=== PATIENT | female | born 1950 | race Hispanic/Latino ===

== ENCOUNTER 2023-07-11 17:20 | Observation (INO) | payer OTHER ==
[~2023-07-11] VITALS: Ht 152.4 cm; Wt 91.6 kg
[~2023-07-11 17:20] MED LIST: DILT120T5 PO
[2023-07-11 17:59] LABS: BASOPHILS # (AUTO) 0.01 K/uL (0.00-0.20); BASOPHILS % (AUTO) 0.1 % (0.0-5.0); EOSINOPHILS # (AUTO) 0.01 K/uL (0.00-0.70); EOSINOPHILS % (AUTO) 0.1 % (0.0-8.0); HEMATOCRIT 34.1 % (36-48); IMMATURE GRANULOCYTE ABSOLUTE 0.05 K/uL (0-1); LYMPHOCYTES # (AUTO) 0.4 K/uL (1.0-4.8); MEAN CORPUSCULAR HGB CONC 31.1 g/dL (32.0-36.0); MEAN CORPUSCULAR VOLUME 86.8 fL (79-99); MONOCYTES # (AUTO) 0.3 K/uL (0.1-1.0); MONOCYTES % (AUTO) 3.6 % (3.0-13.0); NEUTROPHILS # (AUTO) 7.2 K/uL (1.8-7.7); NEUTROPHILS % (AUTO) 90.6 % (40.0-77.0); PLATELET COUNT (AUTO) 323 K/uL (130-400); RED BLOOD CELL COUNT(AUTO) 3.93 MIL/uL (4.00-5.50); RED CELL DISTRIBUTION WIDTH 15.6 % (11.0-15.5)
[2023-07-11 18:15] LABS: CREATININE 0.6 mg/dL (0.5-1.0); POTASSIUM 4.2 mmol/L (3.5-5.1)
[2023-07-11 18:17] LABS: INR <= 0.93 (0.85-1.15)
[2023-07-11] MEDS: DILTIAZEM 25MG INJ IVP ONE ×2 (18:17→18:21)
[2023-07-11] MEDS: DILTIAZEM 125 MG/25 ML INJ 125 MG in 0.9%NACL 100ML 100 ML IV PRN (18:21)
[2023-07-11] MEDS: DILTIAZEM 125 MG/25 ML INJ IV ONE (18:21)
[2023-07-11 18:24] LABS: ALBUMIN 3.1 g/dL (3.5-5.0); BILIRUBIN,TOTAL 0.4 mg/dL (0.2-1.0); MAGNESIUM 1.8 mg/dL (1.80-2.40); TOTAL PROTEIN, SERUM 7.2 g/dL (6.0-8.3)
[2023-07-11 18:36] LABS: APPEARANCE,URINE CLEAR (CLEAR); BILIRUBIN,URINE NEGATIVE (NEGATIVE); COLOR,URINE COLORLESS (YELLOW); GLUCOSE, URINE (UA) NEGATIVE (NEGATIVE); KETONES,URINE 5 mg/dL (NEGATIVE); LEUKOCYTE ESTERASE ,URINE 500 Leu/uL (NEGATIVE); NITRATE,URINE NEGATIVE (NEGATIVE); OCCULT BLOOD,URINE SMALL (NEGATIVE); PROTEIN,URINE NEGATIVE (NEGATIVE); UROBILINOGEN,URINE 0.2 mg/dL (0.2-1.0)
[2023-07-11 18:41] LABS: ADD UA MICROSCOPIC YES
[2023-07-11 18:43] LABS: BACTERIA,URINE RARE /HPF (None Seen); MUCUS,URINE RARE LPF (None Seen); SQUAMOUS EPITHELIAL CELL,UR FEW /HPF (0-2); UNCLASSIFIED CRYSTAL 1 /HPF (None Seen)
[2023-07-11] MEDS: ENOXAPARIN SODIUM 100 MG/1 ML SQ ONE (20:08)
[2023-07-11] MEDS ORDERED: ONDANSETRON 4MG INJ IVP PRN (20:30)
[2023-07-11] MEDS ORDERED: IPRATROPIUM 0.5 MG/2.5 ML INH IH PRN (20:30)
[2023-07-11] MEDS ORDERED: LACTULOSE 20 GM/30 ML UDCUP PO PRN (20:30)
[2023-07-11] MEDS ORDERED: TEMAZEPAM 15 MG CAPSULE PO PRN (20:30)
[2023-07-11] MEDS ORDERED: ALBUTEROL 0.083% 2.5 MG/3 ML INH IH PRN (20:30)
[2023-07-11] MEDS ORDERED: ACETAMINOPHEN 325 MG TAB PO PRN (20:30)
[2023-07-11] MEDS ORDERED: DOCUSATE SODIUM 100 MG CAP PO PRN (20:30)
[2023-07-11] MEDS ORDERED: ACETAMINOPHEN 650 MG SUPPOSITORY RC PRN (20:30)
[2023-07-11] MEDS ORDERED: HYDRALAZINE 20MG/ML VIAL IV PRN (20:30)
[2023-07-11] MEDS: INSULIN HUMULIN R 100 UNIT/ML 3ML SQ SCH (21:00)
[2023-07-11] MEDS: METOPROLOL TARTRATE 25 MG TAB PO SCH (21:16)
[2023-07-12 04:05] VITALS: O2SAT 97
[2023-07-12 04:47] VITALS: BP 101/45; PULSE 77; RESP 16
[2023-07-12] MEDS ORDERED: NITROGLYCERIN 0.4 MG SL TAB SL PRN (06:00)
[2023-07-12] MEDS ORDERED: POTASSIUM CHLORIDE 10% ELIXIR 20 MEQ/15 ML UDCUP PO PRN (06:00)
[2023-07-12] MEDS ORDERED: POTASSIUM CHLORIDE 20MEQ/100ML 100 ML IV PRN (06:00)
[2023-07-12 06:01] LABS: EOSINOPHILS # (AUTO) 0.01 K/uL (0.00-0.70); EOSINOPHILS % (AUTO) 0.3 % (0.0-8.0); HEMATOCRIT 30.9 % (36-48); LYMPHOCYTES # (AUTO) 0.5 K/uL (1.0-4.8); LYMPHOCYTES % (AUTO) 16.5 % (21.0-51.0); MEAN CORPUSCULAR HEMOGLOBIN 27.1 pg (27.0-33.0); MEAN CORPUSCULAR HGB CONC 31.1 g/dL (32.0-36.0); MEAN CORPUSCULAR VOLUME 87.3 fL (79-99); MONOCYTES # (AUTO) 0.3 K/uL (0.1-1.0); MONOCYTES % (AUTO) 10.2 % (3.0-13.0); NEUTROPHILS # (AUTO) 2.4 K/uL (1.8-7.7); PLATELET COUNT (AUTO) 256 K/uL (130-400); RED BLOOD CELL COUNT(AUTO) 3.54 MIL/uL (4.00-5.50); RED CELL DISTRIBUTION WIDTH 15.3 % (11.0-15.5); WHITE BLOOD COUNT (AUTO) 3.2 K/uL (4.8-10.8)
[2023-07-12] MEDS: DOXYCYCLINE 100MG+NS 250ML 250 ML IV SCH (06:06)
[2023-07-12 06:07] LABS: CREATININE 0.6 mg/dL (0.5-1.0); MAGNESIUM 1.6 mg/dL (1.80-2.40); PHOSPHORUS 3.4 mg/dL (2.5-4.9); POTASSIUM 3.2 mmol/L (3.5-5.1)
[2023-07-12] MEDS: LACTATED RINGERS 1000ML 250 ML IV SCH (07:21)
[2023-07-12] MEDS: KCL 20 MEQ ERTAB PO PRN (07:21)
[2023-07-12] MEDS: PANTOPRAZOLE 40 MG/VIAL IVP SCH (08:40)
[2023-07-12] MEDS: ENOXAPARIN SODIUM 40 MG/0.4 ML SYRINGE SQ SCH (08:42)
[2023-07-12 08:48] VITALS: BP 112/74; PULSE 90; RESP 18
[2023-07-12] MEDS: MAGNESIUM 2GM PREMIX 50ML 50 ML IV PRN (08:53)
[2023-07-12 08:55] VITALS: O2SAT 97
[2023-07-12] MEDS ORDERED: ASPIRIN 81MG CHEW TAB PO SCH (09:00)
[2023-07-12 12:30] VITALS: BP 128/58; PULSE 76; RESP 18
[2023-07-12 16:21] VITALS: BP 125/58; PULSE 86; RESP 18
[2023-07-12] MEDS ORDERED: METO25 PO (16:44)
[2023-07-12] MEDS ORDERED: ATOR40TA69 PO (16:44)
[2023-07-12] MEDS ORDERED: LEVO-70 PO (16:46)
[2023-07-12] MEDS ORDERED: ATORVASTATIN 40 MG TABLET PO SCH (21:00)
== END 2023-07-12 18:25 | disposition home or self-care (01) ==
LOC: EDH 17:20 → EDHIP 19:24 → 2AH 07-12 01:32
PROVIDERS: ADMIT Internal Medicine Critical Care Medicine; ATTEND Internal Medicine Critical Care Medicine
DX: I48.20 Chronic atrial fibrillation, unspecified (principal); N30.00 Acute cystitis without hematuria; E87.1 Hypo-osmolality and hyponatremia; E87.8 Other disorders of electrolyte and fluid balance, not elsewhere classified; E83.42 Hypomagnesemia; E16.2 Hypoglycemia, unspecified; E86.0 Dehydration; D64.9 Anemia, unspecified; E78.00 Pure hypercholesterolemia, unspecified; I73.9 Peripheral vascular disease, unspecified; I10 Essential (primary) hypertension; I25.10 Atherosclerotic heart disease of native coronary artery without angina pectoris; Z88.0 Allergy status to penicillin; Z79.899 Other long term (current) drug therapy
CPT/HCPCS: 96372 ×2; 96376; 96361; 96365; 96366 ×2; 99285; 83735 ×2; 84484 ×2; 80053; 85025 ×2; 85610; 87088; 81001; 36415 ×2; 71045; 93005 ×2; 96375; 96367; 84100; 80048; 83880; 82948 ×2; 93306; G0378 ×20; J3490 ×4; J1650 ×2; J3475; C9113

== ENCOUNTER 2025-01-10 09:18 | Inpatient (IN) | payer OTHER ==
[~2025-01-10] VITALS: Ht 152.4 cm; Wt 89.2 kg
[2025-01-10] VITALS (8 sets, daily range): BP systolic 100–132; BP diastolic 45–90; PULSE 94–108; RESP 16–20; TEMP 98–98.8; O2SAT 97–98
[~2025-01-10 09:18] MED LIST changes: +ATOR40TA69 PO; -DILT120T5 PO; +LEVO-70 PO; +METO25 PO
--- NOTE | 2025-01-10 09:53 | EKG ---
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
[2025-01-10 09:55] LABS: IMMATURE GRANULOCYTE ABSOLUTE 0.06 K/uL (0-1); NUCLEATED RED BLOOD CELLS 0.2 % (0.0-0.19); PLATELET COUNT (AUTO) 335 K/uL (130-400); RED BLOOD CELL COUNT(AUTO) 3.62 MIL/uL (4.00-5.50); RED CELL DISTRIBUTION WIDTH 14.5 % (11.0-15.5); WHITE BLOOD COUNT (AUTO) 10.0 K/uL (4.8-10.8)
[2025-01-10 10:13] LABS: ASPARTATE AMINOTRANSFERASE 13.0 U/L (10-37); CREATINE KINASE, TOTAL 24.0 U/L (21-232); CREATININE 0.6 mg/dL (0.5-1.0); GLOMERULAR FILTR. RATE CALC 93.0 mL/min (>90); GLUCOSE,RANDOM 117.0 mg/dL (70-105); SODIUM SERUM 136.0 mmol/L (136-145); TOTAL PROTEIN, SERUM 7.4 g/dL (6.0-8.3); UREA NITROGEN, BLOOD 13.0 mg/dL (7-18)
[2025-01-10 10:24] LABS: COVID19 (SARS ANTIGEN RAPID) PRESUMPTIVE NEGATIVE (NEGATIVE); INFLUENZA TYPE A Negative For Type A (NEGATIVE); INFLUENZA TYPE B Negative For Type B (NEGATIVE)
--- NOTE | 2025-01-10 11:28 | HMCIMG ---
CHEST 1VW REASON: fever COMPARISON: Study from 07/11/2023 is available. FINDINGS: Single view of the chest was obtained. Lungs are clear. There is cardiomegaly with left ventricular contour.. There is no pulmonary vascular congestion. Mediastinum and bony thorax appear unremarkable. IMPRESSION: 1. Cardiomegaly with left ventricular contour. 2. No evidence of airspace consolidation or pulmonary venous congestion..
[2025-01-10] MEDS ORDERED: MAGNESIUM 2GM PREMIX 50ML 50 ML IV PRN (12:00)
--- NOTE | 2025-01-10 12:14 | HP ---
[facility] Date of Service: Jan 10, 2025 Time of Service: 12:13 HISTORY OF PRESENT ILLNESS: 74-year-old female with past medical history of atrial fibrillation not on anticoagulation who presented to the hospital secondary to cough, congestion for the past three days. The patient states around three days ago she noted that she was having increased shortness of breath which was present at rest and with exertion. She also noted fevers and felt like she was down with the ' cold'. She has cough but the cough is nonproductive. Denies any chest pain, abdominal pain, nausea, vomiting, denied any changes in her bowel movement. Denied any dysuria, changes in her urinary frequency. Denied any lower extremity swelling. She denies any history of blood clots and states she has been active at home. She sees Dr. Penny who is her primary business account executive. She is currently not taking any anticoagulation at home but is maintained on metoprolol b.i.d.. She did not take her dose in the morning today. Labs in the ER were notable for white count of 10.0, hemoglobin was 10.1, platelet count was 335 K, sodium was 136, potassium was 3.7, creatinine was 0.6, BNP was 391, troponin was seven, albumin was 3.3 Chest x-ray did not show any acute infiltrates Temperature on presentation was 100.0, heart rate was 107, respiratory rate was 28, blood pressure was 147/65 the patient was placed on2 L nasal cannula saturating around 98%. In the ER patient received Lasix 80 mg, Rocephin, Solu-Medrol REVIEW OF SYSTEMS CONSTITUTIONAL: Denies fevers, chills, or night sweats. No unintentional weight loss reported. NEUROLOGICAL: Denies headache, amaurosis fugax, motor weakness, sensory deficit, vertigo/spinning sensation, gait abnormalities, or tremors. ENT: No hearing loss, otalgia, otorrhea, rhinitis, rhinorrhea, hoarseness, or sore throat. CARDIOVASCULAR: Denied any chest pain. Positive for orthopnea. Denied any PND PULMONARY: Positive for shortness of breath, cough. Denied any sputum production GASTROINTESTINAL: Denies any type of dysphagia to either liquids or solids. Denies nausea, vomiting, pyrosis, early satiety, abdominal pain, diarrhea, constipation, or changes in stool consistency or caliber. Denies coffee-ground emesis, hematemesis, hematochezia, or melanotic stools. GENITOURINARY: Denies frequency, urgency, nocturia, hematuria or incontinence (Storage/Irritative symptoms.) Low urinary stream, straining to void, urinary intermittency or hesitancy, splitting of the voiding stream, terminal dribbling. ENDOCRINOLOGIC: Denies polyuria, polydipsia, polyphagia or heat/cold intolerances. HEMATOLOGIC: Denies thrombophilia/previous clots, or coagulopathy/bleeding disorders. ONCOLOGIC: Denies personal history of malignancy. DERMATOLOGIC: Denies rashes or pruritus. PSYCHIATRIC: Denies any suicidal or homicidal ideation. Denies hallucinations. PAST MEDICAL HISTORY: Atrial fibrillation PAST SURGICAL HISTORY: If he had any previous surgical history PAST SOCIAL HISTORY: Denied any smoking, alcohol, drug abuse FAMILY HISTORY: [ ] Denied any pertinent family history Coded Allergies: aspirin (Unverified Allergy, Intermediate, SHORTNESS OF BREATH, 07/11/23) naproxen (Unverified Allergy, Intermediate, SHORTNESS OF BREATH, 07/11/23) nitrofurantoin (Unverified Allergy, Intermediate, tingling in lips, nausea , 03/11/17) Penicillins (Unverified Allergy, Unknown, 07/11/23) PHYSICAL EXAM GENERAL APPEARANCE: The patient is awake, alert, and oriented, in no acute cardiopulmonary distress. Patient is Obese NEUROLOGICAL: Cranial nerves II-XII grossly intact. Motor is 5/5 in bilateral upper and lower extremities proximal to distal. No sensory deficits. HEENT: Face is symmetric. Pupils are equal and reactive. Extraocular movements are intact. NECK: Supple. No JVD. No thyromegaly. No submental, submandibular, pre-/postauricular, occipital or supraclavicular lymphadenopathy. CHEST: Normal chest expansion. No Telemetry. LUNGS: She has mild expiratory wheezing present CARDIOVASCULAR: Irregularly irregular. S1 and S2 normal. No appreciable rubs, murmurs or gallops. ABDOMEN: Soft, nontender, and nondistended. There is no rebound, voluntary guarding, or rigidity. : Deferred. No Pratt. EXTREMITIES: Non-edematous and not cyanotic. No clubbing. Good capillary refill. SKIN: No skin breakdown. Vital Sign (Last 24 Hours) 01/10/25 10:58 Temp 100.0 Pulse 112 Resp 28 B/P (MAP) 160/82 Pulse Ox 98 O2 Delivery Nasal Cannula* O2 Flow Rate 2 FiO2 28 LABS: Laboratory: Test 01/10/25 09:39 01/10/25 09:34 Range/Units White Blood Count 10.0 4.8-10.8 K/uL Red Blood Count 3.62 L 4.00-5.50 MIL/uL Hemoglobin 10.1 L 12.0-16.0 g/dL Hematocrit 31.6 L 36-48 % Mean Corpuscular Volume 87.3 79-99 fL Mean Corpuscular Hemoglobin 27.9 27.0-33.0 pg Mean Corpuscular Hemoglobin Concent 32.0 32.0-36.0 g/dL Red Cell Distribution Width 14.5 11.0-15.5 % Platelet Count 335 130-400 K/uL Mean Platelet Volume 9.0 7.5-10.5 fL Immature Granulocyte % (Auto) 0.6 0-1 % Neutrophils (%) (Auto) 87.2 H 40.0-77.0 % Lymphocytes (%) (Auto) 6.4 L 21.0-51.0 % Monocytes (%) (Auto) 4.5 3.0-13.0 % Eosinophils (%) (Auto) 1.1 0.0-8.0 % Basophils (%) (Auto) 0.2 0.0-5.0 % Neutrophils # (Auto) 8.7 H 1.8-7.7 K/uL Lymphocytes # (Auto) 0.6 L 1.0-4.8 K/uL Monocytes # (Auto) 0.5 0.1-1.0 K/uL Eosinophils # (Auto) 0.11 0.00-0.70 K/uL Basophils # (Auto) 0.02 0.00-0.20 K/uL Absolute Immature Granulocyte (auto 0.06 0-1 K/uL Nucleated Red Blood Cells 0.2 H 0.0-0.19 % White Cell Morphology Comment See comments Sodium Level 136 136-145 mmol/L Potassium Level 3.7 3.5-5.1 mmol/L Chloride Level 101 101-111 mmol/L Carbon Dioxide Level 29 21-32 mmol/L Blood Urea Nitrogen 13 7-18 mg/dL Creatinine 0.6 0.5-1.0 mg/dL Glomerular Filtration Rate Calc 93 >90 mL/min Random Glucose 117 H 70-105 mg/dL Lactic Acid Level 1.3 0.8-2.5 mmol/L Total Calcium 8.6 8.5-10.1 mg/dL Total Bilirubin 0.4 0.2-1.0 mg/dL Direct Bilirubin 0.1 0.0-0.3 mg/dL Aspartate Amino Transf (AST/SGOT) 13 10-37 U/L Alanine Aminotransferase (ALT/SGPT) 17 12-78 U/L Alkaline Phosphatase 81 50-136 U/L Total Creatine Kinase 24 # 21-232 U/L Troponin I High Sensitivity 7 4-50 ng/L B-Type Natriuretic Peptide 391 H 0-100 pg/mL Total Protein 7.4 6.0-8.3 g/dL Albumin 3.3 L 3.5-5.0 g/dL Influenza Type A Antigen Negative For Type A NEGATIVE Influenza Type B Antigen Negative For Type B NEGATIVE SARS-CoV-2 Antigen (Rapid) PRESUMPTIVE NEGATIVE NEGATIVE Current Medications Medications (Trade) Dose Ordered Sig/Guerline Route PRN Reason Start Time Stop Time Status Last Admin Dose Admin Acetaminophen (TYLenol 500MG TAB) 500 mg Q6H PRN PO MILD PAIN (1-3) 01/10/25 12:00 02/09/25 11:59 Albuterol (DUOneb) 1 udvial ONCE STAT IH 01/10/25 09:25 01/10/25 09:39 DC Ceftriaxone Sodium (Rocephin 2gm Inj) 2 gm ONCE STAT IVPB 01/10/25 09:25 01/10/25 09:31 DC 01/10/25 10:06 2 GM Famotidine (Pepcid 20mg Vial) 20 mg BID IV 01/10/25 21:00 02/09/25 20:59 Furosemide (LASix 40MG VIAL) 40 mg Q12H IV 01/10/25 18:00 02/09/25 17:59 Furosemide (LASix 40MG VIAL) 80 mg ONCE STAT IV 01/10/25 10:08 01/10/25 10:10 DC 01/10/25 10:54 80 MG Levofloxacin/ Dextrose 100 ml @ 100 mls/hr Q24H IV 01/10/25 13:00 01/20/25 12:59 Magnesium Sulfate 50 ml @ 0 mls/hr PROTOCOL PRN IV hypomagnesemia 10/18/25 12:00 02/09/25 11:59 Methylprednisolone Sodium Succinate (Solu-medROL 40MG) 40 mg Q12H IVP 01/10/25 18:00 02/09/25 17:59 Methylprednisolone Sodium Succinate (Solu-medROL 125MG) 125 mg ONCE STAT IVP 01/10/25 09:25 01/10/25 09:28 DC Metoprolol Tartrate (loprESSOR) 5 mg ONCE STAT IV 01/10/25 09:39 01/10/25 09:42 DC 01/10/25 10:07 5 MG Metoprolol Tartrate (loprESSOR) 5 mg ONCE STAT IV 01/10/25 10:48 01/10/25 10:50 DC 01/10/25 10:54 5 MG Potassium Chloride 100 ml @ 100 mls/hr AD PRN IV POTASSIUM PROTOCOL 01/10/25 12:00 02/09/25 11:59 Potassium Chloride (K-Dur/Klor-Con 20meq) 20 meq AD PRN PO POTASSIUM PROTOCOL 01/10/25 12:00 02/09/25 11:59 Potassium Chloride (KCl 10% Elixir 20meq/15ml) 20 meq AD PRN PO POTASSIUM PROTOCOL 01/10/25 12:00 02/09/25 11:59 DIAGNOSTICS / RADIOLOGY: [ ] ASSESSMENT: Suspected sepsis POA Paroxysmal atrial fibrillation with RVR POA Acute hypoxic respiratory failure POA Suspected community-acquired pneumonia versus viral URI Acute CHF exacerbation with diastolic dysfunction Obesity BMI 39.8 Normocytic anemia PLAN: - patient to be admitted to PCCU -in reference to suspected sepsis, acute hypoxic respiratory.. We will obtain a sputum culture. We will follow up on blood cultures. Patient will be started on Levaquin. We will request consultation with pulmonology. Patient will be started on Solu-Medrol Q12 hours -reference to CHF exacerbation. Monitor urine output. Daily weights. Obtain echocardiogram. The patient will be started on metoprolol 25 mg b.i.d. we will request consultation with Cardiology. -check TSH, A1c, procalcitonin -CT chest -further orders per hospitalization course. Advanced Care Planning Which of the following were discussed: Hospice care: Yes __ No _x_ Therapeutic options: Yes __ No __ Advance directives: Yes __ No __ Other discussions: Pt is full code Discussed with who?: patient (Patient, family or surrogates) Voluntary nature of this service was explained to the patient? Yes _x_ No __ Amount of time spent: 25 minutes VIRIDIANA Constantino MD, MD Jan 10, 2025 12:14
[2025-01-10 12:41] LABS: INR 1.04 (0.85-1.15)
[2025-01-10] MEDS ORDERED: METO25TA6 PO (14:11)
[2025-01-10] MEDS ORDERED: FERR-72 PO (14:11)
[2025-01-10] MEDS: SODIUM CHLORIDE 3% FOR INHALATION 4 ML/AMP VIAL.NEB IH ONE ×2 (14:25→19:16)
--- NOTE | 2025-01-10 14:35 | NUR ---
CRITICAL CARE CONSULT COMPLETE. SPOKE TO ESTEPHANIE VALDOVINOS AND STATES HE IS AWARE AND WILL COME VISIT PT AND PLACE ORDERS.
[2025-01-10 15:29] LABS: CREATININE 0.7 mg/dL (0.5-1.0); GLOMERULAR FILTR. RATE CALC 90.0 mL/min (>90); GLUCOSE,RANDOM 121.0 mg/dL (70-105); SODIUM SERUM 140.0 mmol/L (136-145); UREA NITROGEN, BLOOD 13.0 mg/dL (7-18)
--- NOTE | 2025-01-10 15:45 | ERN ---
ED Note History of Present Illness Stated Complaint: AHRF, A FIB RVR, SUSPCTED PNEUMONIA Chief Complaint: Shortness of Breath Time Seen by MD: 09:23 Dictation: 74-year-old female presenting to the emergency department with shortness of breath generalized weakness, patient has a history of atrial fibrillation and feels palpitations symptoms have been going on for few days but got worse this morning. Allergies: Coded Allergies: aspirin (Unverified Allergy, Intermediate, SHORTNESS OF BREATH, 07/11/23) naproxen (Unverified Allergy, Intermediate, SHORTNESS OF BREATH, 07/11/23) nitrofurantoin (Unverified Allergy, Intermediate, tingling in lips, nausea , 03/11/17) Penicillins (Unverified Allergy, Unknown, 07/11/23) Home Meds Reported Medications Ferrous Sulfate (Ferrous Sulfate) 325 Mg (65 Mg Iron) Tablet, 1 TAB PO DAILY for 30 Days, #30 TAB 0 Refills 01/10/25 Metoprolol Tartrate (Metoprolol Tartrate) 25 Mg Tablet, 1 TAB PO DAILY for 30 Days, #60 TAB 0 Refills 01/10/25 Discontinued Scripts Levofloxacin (Levofloxacin) 500 Mg Tablet, 500 MG PO DAILY, #7 TAB Prov:LIZBET BAUTISTA AGACNP 07/12/23 Metoprolol Tartrate (Lopressor) 25 Mg Tab, 25 MG PO BID, #60 TAB Prov:LIZBET BAUTISTA AGACNP 07/12/23 Atorvastatin Calcium (LIPITOR) 40 Mg Tablet, 40 MG PO HS, #30 TAB Prov:LIZBET BAUTISTA AGACNP 07/12/23 Past Medical History Past Medical History: A-Fib, Anemia, CAD, Diverticulosis, High Cholesterol, Hypertension, Renal Disese Additional Past Medical Hx: PVD, Surgical History: Other Social History: Negative Review of System Dictation Constitutional: Negative for fever,chills, and weight loss Eyes: Negative for injury, pain,redness, and discharge ENT: Negative for injury,pain or swelling Cardiovascular: Per HPI Respiratory: Per HPI Abdomen/GI: Negative for abdominal pain, nausea, vomiting, diarrhea, and constipation Back: Negative for injury and pain : Negative for injury, bleeding and discharge MS/Extremity: Negative for injury and deformity Skin: Negative for rash, and discoloration Neuro: Negative for headache, weakness, numbness, tingling, and seizure Psych: Negative for suicide ideation, homicidal ideation, and hallucinations Initial Vital Sign VS Vital Signs Date Time Temp Pulse Resp B/P (MAP) Pulse Ox O2 Delivery O2 Flow Rate FiO2 01/10/25 09:20 100.0 107 28 147/65 94 Room Air 01/10/25 09:41 0 21 Physical Exam Dictation General: awake, alert, uncomfortable Head/Face: Normocephalic, atraumatic Eyes: PERRL, EOMI, vision at baseline ENT: oral cavity clear, TMs clear, no signs of infection Neck: Trachea midline, supple, no nuchal rigidity Cardiovascular: Tachycardia irregularly irregular, normal S1/S2, No MRGs, no JVD Respiratory: Tachypnea with diminished bilateral breath sounds crackles at the bases Abdomen: Soft, non-tender, non-distended, normal bowel sounds, no guarding or rebound. Skin: Warm, dry, normal turgor, no rash MS/Extremity: Pulses equal, no cyanosis, neurovascular intact, FROM Neuro: COAx4, GCS 15, strength 5/5, CN 2-12 intact, normal cerebellar exam, normal gait, Psych: Normal behavior, mood, and affect normal Results (Laboratory/Radiology) Laboratory/Radiology Laboratory Tests Test 01/10/25 09:34 01/10/25 09:39 01/10/25 15:03 Influenza Type A Antigen Negative For Type A Influenza Type B Antigen Negative For Type B SARS-CoV-2 Antigen (Rapid) PRESUMPTIVE NEGATIVE White Blood Count 10.0 K/uL (4.8-10.8) Red Blood Count 3.62 MIL/uL (4.00-5.50) L Hemoglobin 10.1 g/dL (12.0-16.0) L Hematocrit 31.6 % (36-48) L Mean Corpuscular Volume 87.3 fL (79-99) Mean Corpuscular Hemoglobin 27.9 pg (27.0-33.0) Mean Corpuscular Hemoglobin Concent 32.0 g/dL (32.0-36.0) Red Cell Distribution Width 14.5 % (11.0-15.5) Platelet Count 335 K/uL (130-400) Mean Platelet Volume 9.0 fL (7.5-10.5) Immature Granulocyte % (Auto) 0.6 % (0-1) Neutrophils (%) (Auto) 87.2 % (40.0-77.0) H Lymphocytes (%) (Auto) 6.4 % (21.0-51.0) L Monocytes (%) (Auto) 4.5 % (3.0-13.0) Eosinophils (%) (Auto) 1.1 % (0.0-8.0) Basophils (%) (Auto) 0.2 % (0.0-5.0) Neutrophils # (Auto) 8.7 K/uL (1.8-7.7) H Lymphocytes # (Auto) 0.6 K/uL (1.0-4.8) L Monocytes # (Auto) 0.5 K/uL (0.1-1.0) Eosinophils # (Auto) 0.11 K/uL (0.00-0.70) Basophils # (Auto) 0.02 K/uL (0.00-0.20) Absolute Immature Granulocyte (auto 0.06 K/uL (0-1) Nucleated Red Blood Cells 0.2 % (0.0-0.19) H White Cell Morphology Comment See comments Prothrombin Time 11.0 SEC (9.6-11.6) Prothromb Time International Ratio 1.04 (0.85-1.15) Activated Partial Thromboplast Time 30.8 SEC (26.3-35.5) Sodium Level 136 mmol/L (136-145) 140 mmol/L (136-145) Potassium Level 3.7 mmol/L (3.5-5.1) 3.4 mmol/L (3.5-5.1) L Chloride Level 101 mmol/L (101-111) 97 mmol/L (101-111) L Carbon Dioxide Level 29 mmol/L (21-32) 32 mmol/L (21-32) Blood Urea Nitrogen 13 mg/dL (7-18) 13 mg/dL (7-18) Creatinine 0.6 mg/dL (0.5-1.0) 0.7 mg/dL (0.5-1.0) Glomerular Filtration Rate Calc 93 mL/min (>90) 90 mL/min (>90) Random Glucose 117 mg/dL (70-105) H 121 mg/dL (70-105) H Hemoglobin A1c 5.0 % (4.0-6.0) Estimated Average Glucose (eAG) 97 mg/dL (70-126) Lactic Acid Level 1.3 mmol/L (0.8-2.5) Total Calcium 8.6 mg/dL (8.5-10.1) 8.6 mg/dL (8.5-10.1) Total Bilirubin 0.4 mg/dL (0.2-1.0) Direct Bilirubin 0.1 mg/dL (0.0-0.3) Aspartate Amino Transf (AST/SGOT) 13 U/L (10-37) Alanine Aminotransferase (ALT/SGPT) 17 U/L (12-78) Alkaline Phosphatase 81 U/L (50-136) Total Creatine Kinase 24 U/L (21-232) # Troponin I High Sensitivity 7 ng/L (4-50) C-Reactive Protein, Quantitative 83.00 mg/L (0.5-3.0) H B-Type Natriuretic Peptide 391 pg/mL (0-100) H Total Protein 7.4 g/dL (6.0-8.3) Albumin 3.3 g/dL (3.5-5.0) L Procalcitonin < 0.05 ng/mL (0.05-0.5) L Thyroid Stimulating Hormone (TSH) 0.95 uIU/mL (0.36-3.74) # Magnesium Level 1.80 mg/dL (1.80-2.40) Labs Reviewed?: Yes EKG Comment: Atrial fibrillation, heart rate 111, rapid ventricular response no STEMI ED Course ED Course Orders Procedure Category Date Status Time B-Type Natriuretic LAB 01/10/25 Complete Peptide 09:24 Covid19 (Sars Antigen LAB 01/10/25 Complete Rapid) 09:24 Influenza Type A & B, LAB 01/10/25 Complete Rapid 09:24 12 Lead Ekg Tracing- EKG 01/10/25 Complete Technical 09:24 Basic Metabolic Panel LAB 01/10/25 Complete 09:24 Blood Cult STACIE 01/10/25 In Process 09:24 Cbc With Differential LAB 01/10/25 Complete 09:24 Hepatic Function Panel LAB 01/10/25 Complete 09:24 Creatine Kinase, Total LAB 01/10/25 Complete 09:24 Lactic Acid LAB 01/10/25 Complete 09:24 Troponin I High LAB 01/10/25 Complete Sensitivity 09:24 Chest 1vw RAD 01/10/25 Resulted 09:24 Methylprednisolone PHA 01/10/25 Complete Succ 125mg (Solu-Medr 09:25 Ipratropium/Albuterol PHA 01/10/25 Complete Neb (Duoneb) 09:25 Ceftriaxone 2gm Vial PHA 01/10/25 Complete (Rocephin 2gm Inj) 09:25 Metoprolol Tartrate PHA 01/10/25 Complete (Lopressor) 09:39 Furosemide 40mg Vial PHA 01/10/25 Complete (Lasix 40mg Vial) 10:08 Metoprolol Tartrate PHA 01/10/25 Complete (Lopressor) 10:48 Vital Signs(Adult CPOE 01/10/25 Transmitted Hospitalist) 11:51 Nurse To Enter Home CPOE 01/10/25 Transmitted Medication 11:51 Admit Orders ADM 01/10/25 Transmitted 11:51 Telemetry Monitoring CPOE 01/10/25 Transmitted 11:51 Clear Liquid DIET 01/10/25 Transmitted Lunch Famotidine 20mg Vial PHA 01/10/25 Complete (Pepcid 20mg Vial) 21:00 Cardiology Consult CONPHYSVC 01/10/25 Transmitted 11:51 Pulmonology Consult CONPHYSVC 01/10/25 Transmitted 11:51 Procalcitonin LAB 01/10/25 Complete 11:51 Crp Quantitative LAB 01/10/25 Complete 11:51 Thyroid Stimulating LAB 01/10/25 Complete Hormone 11:51 Hemoglobin A1c LAB 01/10/25 Complete 11:51 Respiratory Cult STACIE 01/10/25 In Process W/Gram Stain 11:51 Levofloxacin 500 PHA 01/10/25 In Process Mg/D5w 100 Ml 13:00 Acetaminophen 500mg PHA 01/10/25 In Process Tab (Tylenol 500mg T 12:00 Ct Chest W/O Contrast CT 01/10/25 Taken 11:51 *Nursing CPOE 01/10/25 Transmitted Communication: 11:51 Daily Weights CPOE 01/10/25 Transmitted 11:51 Intake And Output CPOE 01/10/25 Transmitted Every 1 Hour 11:51 Metoprolol Tartrate PHA 01/10/25 Complete 25 Mg Tab (Lopressor 12:00 Furosemide 40mg Vial PHA 01/10/25 In Process (Lasix 40mg Vial) 18:00 Methylprednisolone PHA 01/10/25 In Process Succ 40mg (Solu-Medro 18:00 Basic Metabolic Panel LAB 01/10/25 Complete 15:00 Magnesium LAB 01/10/25 Complete 15:00 Initiate Po KYUNG 01/10/25 In Process Hypokalemia Protoc 11:59 Potassium Chloride PHA 01/10/25 In Process 20meq/100ml (Potassiu 12:00 Potassium Chl 10% PHA 01/10/25 In Process Elixir 20meq (Kcl 10% 12:00 Potassium Chloride PHA 01/10/25 In Process 20meq Er (K-Dur/Klor- 12:00 Notify Physician If CPOE 01/10/25 Transmitted There Is 11:59 Notify Md On The Next CPOE 01/10/25 Transmitted 11:59 Notify Md On The CPOE 01/10/25 Transmitted Next(Cont.) 11:59 Magnesium 2gm Premix PHA 01/10/25 In Process 50ml (Magnesium 2gm 12:00 Infectious Disease CONPHYSVC 01/10/25 Transmitted Consult 12:09 Pt And Ptt LAB 01/10/25 Complete 12:10 Mycoplasma Ab Igm LAB 01/11/25 Verified 04:00 Legionella Pneumo Ag STACIE 01/10/25 Logged Urine 12:10 Ipratropium 0.5 PHA 01/10/25 In Process Mg/2.5 Ml Inh 12:30 Pantoprazole 40mg Inj PHA 01/10/25 In Process (Protonix 40mg Inj 13:00 Sodium Chloride 3% PHA 01/10/25 Complete Inh (Sodium Chloride 14:02 Current Medications Medications (Trade) Dose Ordered Sig/Guerline Route PRN Reason Start Time Stop Time Status Last Admin Dose Admin Albuterol (DUOneb) 1 udvial ONCE STAT IH 01/10/25 09:25 01/10/25 09:39 DC Ceftriaxone Sodium (Rocephin 2gm Inj) 2 gm ONCE STAT IVPB 01/10/25 09:25 01/10/25 09:31 DC 01/10/25 10:06 Furosemide (LASix 40MG VIAL) 80 mg ONCE STAT IV 01/10/25 10:08 01/10/25 10:10 DC 01/10/25 10:54 Methylprednisolone Sodium Succinate (Solu-medROL 125MG) 125 mg ONCE STAT IVP 01/10/25 09:25 01/10/25 09:28 DC Metoprolol Tartrate (loprESSOR) 5 mg ONCE STAT IV 10/18/25 09:39 01/10/25 09:42 DC 01/10/25 10:07 Metoprolol Tartrate (loprESSOR) 5 mg ONCE STAT IV 01/10/25 10:48 01/10/25 10:50 DC 01/10/25 10:54 Vital Signs Date Time Temp Pulse Resp B/P (MAP) Pulse Ox O2 Delivery O2 Flow Rate FiO2 01/10/25 14:45 99.0 95 18 117/76 95 Nasal Cannula* 2 28 01/10/25 14:28 94 20 N/Cannula Low lpm 2.0 28 01/10/25 13:48 99.0 98 30 100/56 94 Nasal Cannula* 2 28 01/10/25 13:42 99.0 98 30 85/45 100 Nasal Cannula* 2 28 01/10/25 12:15 99.0 105 26 123/73 96 Nasal Cannula* 2 28 01/10/25 10:58 100.0 112 28 160/82 98 Nasal Cannula* 2 28 01/10/25 10:54 121 160/82 01/10/25 10:07 121 149/83 01/10/25 09:41 132 26 139/67 97 Room Air* 0 21 01/10/25 09:20 100.0 107 28 147/65 94 Room Air Medical Decision Making MDM MDM: Differential diagnosis: Rationale: Tests considered and ordered secondary to shared decision making include: labs, ECG and radiology Previous outside records reviewed: Old ER visits. Risk of complication and/or morbidity or mortality of patient management: None Medications-Per medication reconciliation Need for hospitalization: Patient does meet criteria for hospitalization. Need for emergency major/minor surgery: No There are no social concerns with this patient. Prescription drug management Prescriptions will include symptomatic care Patient's prior external medical records from other ER visits were reviewed by me as indicated. Prior testing and results from previous visits were reviewed. Prior tests were taken into account with medical decision making and resource utilization, independent historian/historians were used to obtain complete medical history. I independently interpreted the test that were performed, results were reviewed by me and considered findings on radiology if ordered. Medical management and examination interpretation discussions were had by me with other qualified healthcare professionals as indicated for the patient's care. 74-year-old female AFib RVR with fluid overload rate controlled and diuresed admitting for further care and evaluation Critical Care Note Comment(s) Total critical care time was 33 minutes. Excluding time for procedures. Management of critically ill patient with concern for acute decompensation. Management included interpretation of laboratory values and imaging, hemodynamics, time for consultation with consultants and admitting physician. DX & DISP Disposition: Inpatient Departure Impression: Primary Impression: Atrial fibrillation with RVR Additional Impression: Acute CHF Condition: Stable Referrals: LETY ARANGO MD (PCP) DIANA KAPOOR MD Jan 10, 2025 15:45
--- NOTE | 2025-01-10 16:06 | NUR ---
SMILEY BULLOCK PARA MACHINE OPERATOR FOR CARDIOLOGY IS AT PT BEDSIDE
[2025-01-10] MEDS: PoTASSium chl 10% ELIXIR 20MEQ 20 MEQ/15 ML UDCUP PO PRN (16:08)
--- NOTE | 2025-01-10 16:50 | CONS ---
[facility] CONSULTATION NOTE Date Patient Seen: Jan 10, 2025 Time of Visit: 16:42 Supervising Physician: [ ] Reason for Consultation: [ ] Primary Care Physician: [Dr Garcia at [facility] ] Outpatient Specialists: [Dr Penny ] Inpatient Consults: [Dr Harry ] PROBLEM LIST: Acute bronchitis Afib RVR Acute diastolic CHF on the setting of afib RVR HPI: [ ] 74-year-old female with past medical history of atrial fibrillation not on anticoagulation who presented to the hospital secondary to cough, congestion for the past three days. The patient states around three days ago she noted that she was having increased shortness of breath which was present at rest and with exertion. She also noted fevers and felt like she was down with the ' cold'. She has cough but the cough is nonproductive. Denies any chest pain. In the ER patient received Lasix 80 mg, Rocephin, Solu-Medrol. She sees Dr Garcia at [facility] and dr penny in the cardiology clinic. Sh angelito is not on AC I reviewed the CT chest done today and there is no pneumonia she is admitted to the hospital. Her symptoms are suggestive of acute bronchitis as her Flu and covid tests are negative PAST MEDICAL HX: see above PAST SURGICAL HX: noncontributory SOCIAL HISTORY: No tobacco, ETOH, or illicit drug use Coded Allergies: aspirin (Unverified Allergy, Intermediate, SHORTNESS OF BREATH, 07/11/23) naproxen (Unverified Allergy, Intermediate, SHORTNESS OF BREATH, 07/11/23) nitrofurantoin (Unverified Allergy, Intermediate, tingling in lips, nausea , 03/11/17) Penicillins (Unverified Allergy, Unknown, 07/11/23) REVIEW OF SYSTEMS: 12 point ROS reviewed with patient. Pertinent positives mentioned above. Otherwise negative. PHYSICAL EXAM: GENERAL: alert, weak, awake oriented x 3 HEENT: EOMI, Sclera non icteric, moist mucosa NECK: Supple, no JVD, trachea midline LUNGS: Clear breath sounds bilaterally. No wheezes HEART: irregular rate and rhythm. Normal S1 and S2, without murmurs ABD: Abdomen soft, nontender. Bowel sounds present EXT: No clubbing cyanosis or edema NEURO: Alert and oriented to person, follows commands Vital Signs (last 8hr) Date Time Temp Pulse Resp B/P (MAP) Pulse Ox O2 Delivery O2 Flow Rate FiO2 01/10/25 14:45 99.0 95 18 117/76 95 Nasal Cannula* 2 28 01/10/25 14:28 94 20 N/Cannula Low lpm 2.0 28 01/10/25 13:48 99.0 98 30 100/56 94 Nasal Cannula* 2 28 01/10/25 13:42 99.0 98 30 85/45 100 Nasal Cannula* 2 28 01/10/25 12:15 99.0 105 26 123/73 96 Nasal Cannula* 2 28 01/10/25 10:58 100.0 112 28 160/82 98 Nasal Cannula* 2 28 01/10/25 10:54 121 160/82 01/10/25 10:07 121 149/83 01/10/25 09:41 132 26 139/67 97 Room Air* 0 21 01/10/25 09:20 100.0 107 28 147/65 94 Room Air LABS: Hematology Labs: Test 01/10/25 09:39 Range/Units White Blood Count 10.0 4.8-10.8 K/uL Red Blood Count 3.62 L 4.00-5.50 MIL/uL Hemoglobin 10.1 L 12.0-16.0 g/dL Hematocrit 31.6 L 36-48 % Mean Corpuscular Volume 87.3 79-99 fL Mean Corpuscular Hemoglobin 27.9 27.0-33.0 pg Mean Corpuscular Hemoglobin Concent 32.0 32.0-36.0 g/dL Red Cell Distribution Width 14.5 11.0-15.5 % Platelet Count 335 130-400 K/uL Mean Platelet Volume 9.0 7.5-10.5 fL Immature Granulocyte % (Auto) 0.6 0-1 % Neutrophils (%) (Auto) 87.2 H 40.0-77.0 % Lymphocytes (%) (Auto) 6.4 L 21.0-51.0 % Monocytes (%) (Auto) 4.5 3.0-13.0 % Eosinophils (%) (Auto) 1.1 0.0-8.0 % Basophils (%) (Auto) 0.2 0.0-5.0 % Neutrophils # (Auto) 8.7 H 1.8-7.7 K/uL Lymphocytes # (Auto) 0.6 L 1.0-4.8 K/uL Monocytes # (Auto) 0.5 0.1-1.0 K/uL Eosinophils # (Auto) 0.11 0.00-0.70 K/uL Basophils # (Auto) 0.02 0.00-0.20 K/uL Absolute Immature Granulocyte (auto 0.06 0-1 K/uL Nucleated Red Blood Cells 0.2 H 0.0-0.19 % White Cell Morphology Comment See comments Chemistry Labs: Test 01/10/25 15:03 01/10/25 09:39 Range/Units Sodium Level 140 136-145 mmol/L Potassium Level 3.4 L 3.5-5.1 mmol/L Chloride Level 97 L 101-111 mmol/L Carbon Dioxide Level 32 21-32 mmol/L Blood Urea Nitrogen 13 7-18 mg/dL Creatinine 0.7 0.5-1.0 mg/dL Glomerular Filtration Rate Calc 90 >90 mL/min Random Glucose 121 H 70-105 mg/dL Total Calcium 8.6 8.5-10.1 mg/dL Magnesium Level 1.80 1.80-2.40 mg/dL Hemoglobin A1c 5.0 4.0-6.0 % Estimated Average Glucose (eAG) 97 70-126 mg/dL Lactic Acid Level 1.3 0.8-2.5 mmol/L Total Bilirubin 0.4 0.2-1.0 mg/dL Direct Bilirubin 0.1 0.0-0.3 mg/dL Aspartate Amino Transf (AST/SGOT) 13 10-37 U/L Alanine Aminotransferase (ALT/SGPT) 17 12-78 U/L Alkaline Phosphatase 81 50-136 U/L Total Creatine Kinase 24 # 21-232 U/L Troponin I High Sensitivity 7 4-50 ng/L C-Reactive Protein, Quantitative 83.00 H 0.5-3.0 mg/L B-Type Natriuretic Peptide 391 H 0-100 pg/mL Total Protein 7.4 6.0-8.3 g/dL Albumin 3.3 L 3.5-5.0 g/dL Procalcitonin < 0.05 L 0.05-0.5 ng/mL Thyroid Stimulating Hormone (TSH) 0.95 # 0.36-3.74 uIU/mL Coagulation Labs: Test 01/10/25 09:39 Range/Units Prothrombin Time 11.0 9.6-11.6 SEC Prothromb Time International Ratio 1.04 0.85-1.15 Activated Partial Thromboplast Time 30.8 26.3-35.5 SEC DIAGNOSTICS / RADIOLOGY RESULTS: [ ] PLAN HR control AC per chads vasc score ABX and low dose steroids for possible acute bronchitis No albuterol due to afib rvr JANELLE HARRY MD Jan 10, 2025 16:50
--- NOTE | 2025-01-10 18:38 | CONS ---
CONSULT NOTE: CARDIOLOGY Reason for consult: Atrial fibrillation HPI/story at presentation: 74 year old female with a past medical history significant for atrial fibrillation currently not on any oral anticoagulation due to anemia as per patient presented to the emergency department due to shortness of breath. Onset yesterday. Reports current senior living advisor is Dr. Penny. Denies any chest pain. Reports shortness of breath is worse with exertion. Initial 12 Lead EKG showing atrial fibrillation with RVR at 125 bpm. Past medical history: See below Allergies, Meds See chart Review of systems Review of Systems Constitutional: Negative for chills and fever. HENT: Negative for ear discharge and ear pain. Eyes: Negative for photophobia and discharge. Respiratory: Negative for cough, sputum production and stridor. Cardiovascular: Negative for chest pain and palpitations. Gastrointestinal: Negative for diarrhea and vomiting. Genitourinary: Negative for frequency. Musculoskeletal: Negative for myalgias. Skin: Negative for rash. Neurological: Negative for focal weakness and seizures. Endo/Heme/Allergies: Negative for polydipsia. Psychiatric/Behavioral: Negative for hallucinations. Vitals see chart PHYSICAL EXAMINATION GENERAL: The patient is alert and oriented*3 HEENT: Nonicteric sclerae, non traumatic HEART: Irregular rate and rhythm with no murmurs LUNGS: Clear to auscultation bilaterally ABDOMEN: No acute issues, non tender GENITAL, RECTAL: deferred SKIN: No rash NEUROLOGIC: NFND EXTREMITIES: No edema ASSESSMENT ATRIAL FIBRILLATION History of not on oral DOAC due to anemia Initial 12 Lead EKG showing atrial fibrillation with RVR at 125 bpm. SHORTNESS OF BREATH worse with exertion suspected pneumonia CORE MEASURES Pending OTHER MEDICAL PROBLEMS PLAN 01/10/2025 Order echocardiogram atrial fibrillation currently rate controlled will hold anticoagulation for now patient may benefit for a watchman procedure evaluation Continue with IV Lasix Continue with Metoprolol 12.5 BID ATTESTATION Case discussed with SMILEY Denton Jan 10, 2025 18:38
[2025-01-10] MEDS: Solu-medROL 40MG VIAL IVP SCH (18:48)
[2025-01-10] MEDS: PoTASSium chloRIDE 20MEQ ER 20 MEQ ERTAB PO PRN (18:49)
--- NOTE | 2025-01-10 19:30 | HMCIMG ---
EXAM: CT Chest Without IV contrast. CLINICAL HISTORY: Rule out Pneumonia TECHNIQUE: Axial computed tomography images of the chest without intravenous contrast. COMPARISON: CR - CHEST 1VW 01/10 9:39 EDT FINDINGS: LUNGS: Few fibro-atelectatic bands are seen along the lingular segment of the left upper lobe. No pulmonary mass. PLEURAL SPACES: No evidence of pneumothorax. No pleural effusion. HEART: No cardiomegaly. No significant pericardial effusion. Atherosclerotic changes are seen in the form of wall calcification of the thoracic aorta and arch of the aorta LYMPH NODES: Multiple subcentimetric to enlarged mediastinal lymph nodes are seen, the largest measuring 1.2 cm in the pre-tracheal region. UPPER ABDOMEN: A large mixed type of hiatus hernia is seen through which the body of the stomach, cardiac, and GE junction is seen herniating. Through a defect of size 3.5 cm, the visualized section of the abdomen reveals post-cholecystectomy status. BONES: Degenerative changes are seen in the spine. Multiple vertebral body hemangiomas are seen along the dorsal spine. No acute osseous abnormality. IMPRESSION: 1. No acute intrathoracic findings. 2. Large mixed hiatal hernia with herniation of stomach, cardia, and gastroesophageal junction. 3. Multiple subcentimeter to enlarged mediastinal lymph nodes, largest measuring 1.2 cm in pre-tracheal region. 4. Atherosclerotic changes of thoracic aorta and aortic arch. 5. Post-cholecystectomy status. /[place]
[2025-01-10] MEDS ORDERED: FAMOTIDINE 20MG VIAL IV SCH (21:00)
[2025-01-11] VITALS (9 sets, daily range): BP systolic 111–166; BP diastolic 42–76; PULSE 79–104; RESP 16–20; TEMP 97.9–98.7; O2SAT 97–100
[2025-01-11 07:54] LABS: IMMATURE GRANULOCYTE ABSOLUTE 0.02 K/uL (0-1); NUCLEATED RED BLOOD CELLS 0.0 % (0.0-0.19); PLATELET COUNT (AUTO) 331 K/uL (130-400); RED BLOOD CELL COUNT(AUTO) 3.47 MIL/uL (4.00-5.50); RED CELL DISTRIBUTION WIDTH 14.6 % (11.0-15.5); WHITE BLOOD COUNT (AUTO) 7.1 K/uL (4.8-10.8)
[2025-01-11 08:03] LABS: CREATININE 0.7 mg/dL (0.5-1.0); GLOMERULAR FILTR. RATE CALC 90.0 mL/min (>90); GLUCOSE,RANDOM 103.0 mg/dL (70-105); SODIUM SERUM 136.0 mmol/L (136-145); UREA NITROGEN, BLOOD 15.0 mg/dL (7-18)
--- NOTE | 2025-01-11 10:10 | PN ---
[facility] PROGRESS NOTE Date of Service: Jan 11, 2025 Time of Service: 10:05 SUBJECTIVE: [ 74-year-old female who is hospital day 2. She states she has breathing better and the cough is much better she is now speaking in complete sentences. She states has no history of diabetes no history of prior strokes and has not had any stents or coronary artery bypass. She does have a history of atrial fibrillation but was never placed on anticoagulation because of her longstanding anemia. She states she has had this ever since she was a child. ] REVIEW OF SYSTEMS CONSTITUTIONAL: Denies fevers, chills, or night sweats. No unintentional weight loss reported. NEUROLOGICAL: Denies headache, amaurosis fugax, motor weakness, sensory deficit, vertigo/spinning sensation, gait abnormalities, or tremors. ENT: No hearing loss, otalgia, otorrhea, rhinitis, rhinorrhea, hoarseness, or sore throat. CARDIOVASCULAR: Denied any chest pain. Positive for orthopnea. Denied any PND PULMONARY: Positive for shortness of breath, cough. Denied any sputum produ ction, improved shortness for breath and decreased cough GASTROINTESTINAL: Denies any type of dysphagia to either liquids or solids. Denies nausea, vomiting, pyrosis, early satiety, abdominal pain, diarrhea, constipation, or changes in stool consistency or caliber. Denies coffee-ground emesis, hematemesis, hematochezia, or melanotic stools. GENITOURINARY: Denies frequency, urgency, nocturia, hematuria or incontinence (Storage/Irritative symptoms.) Low urinary stream, straining to void, urinary intermittency or hesitancy, splitting of the voiding stream, terminal dribbling. ENDOCRINOLOGIC: Denies polyuria, polydipsia, polyphagia or heat/cold intolerances. HEMATOLOGIC: Denies thrombophilia/previous clots, or coagulopathy/bleeding disorders. ONCOLOGIC: Denies personal history of malignancy. DERMATOLOGIC: Denies rashes or pruritus. PSYCHIATRIC: Denies any suicidal or homicidal ideation. Denies hallucinations. PHYSICAL EXAM GENERAL APPEARANCE: The patient is awake, alert, and oriented, in no acute cardiopulmonary distress. Patient is Obese NEUROLOGICAL: Cranial nerves II-XII grossly intact. Motor is 5/5 in bilateral upper and lower extremities proximal to distal. No sensory deficits. HEENT: Face is symmetric. Pupils are equal and reactive. Extraocular movements are intact. NECK: Supple. No JVD. No thyromegaly. No submental, submandibular, pre- /postauricular, occipital or supraclavicular lymphadenopathy. CHEST: Normal chest expansion. No Telemetry. LUNGS: Clear to auscultation bilaterally CARDIOVASCULAR: Irregularly irregular. S1 and S2 normal. No appreciable rubs, murmurs or gallops. ABDOMEN: Soft, nontender, and nondistended. There is no rebound, voluntary guarding, or rigidity. : Deferred. No Pratt. EXTREMITIES: Non-edematous and not cyanotic. No clubbing. Good capillary refill. SKIN: No skin breakdown. Vital Signs (last 8hr) Date Time Temp Pulse Resp B/P (MAP) Pulse Ox O2 Delivery O2 Flow Rate FiO2 01/11/25 07:28 98.4 100 16 111/42 99 Nasal Cannula 2.0 01/11/25 06:42 79 20 N/Cannula Low lpm 2.0 28 01/11/25 03:12 98.8 97 18 112/69 99 Room Air LABS: Laboratory: Test 01/11/25 03:46 01/10/25 15:03 01/10/25 09:39 01/10/25 09:34 Range/Units White Blood Count 7.1 # 4.8-10.8 K/uL Red Blood Count 3.47 L 4.00-5.50 MIL/uL Hemoglobin 9.6 L 12.0-16.0 g/dL Hematocrit 29.8 L 36-48 % Mean Corpuscular Volume 85.9 79-99 fL Mean Corpuscular Hemoglobin 27.7 27.0-33.0 pg Mean Corpuscular Hemoglobin Concent 32.2 32.0-36.0 g/dL Red Cell Distribution Width 14.6 11.0-15.5 % Platelet Count 331 130-400 K/uL Mean Platelet Volume 10.0 7.5-10.5 fL Immature Granulocyte % (Auto) 0.3 0-1 % Neutrophils (%) (Auto) 78.5 H 40.0-77.0 % Lymphocytes (%) (Auto) 10.6 L 21.0-51.0 % Monocytes (%) (Auto) 8.2 3.0-13.0 % Eosinophils (%) (Auto) 2.1 0.0-8.0 % Basophils (%) (Auto) 0.3 0.0-5.0 % Neutrophils # (Auto) 5.5 1.8-7.7 K/uL Lymphocytes # (Auto) 0.8 L 1.0-4.8 K/uL Monocytes # (Auto) 0.6 0.1-1.0 K/uL Eosinophils # (Auto) 0.15 0.00-0.70 K/uL Basophils # (Auto) 0.02 0.00-0.20 K/uL Absolute Immature Granulocyte (auto 0.02 0-1 K/uL Nucleated Red Blood Cells 0.0 0.0-0.19 % Sodium Level 136 136-145 mmol/L Potassium Level 4.0 3.5-5.1 mmol/L Chloride Level 101 101-111 mmol/L Carbon Dioxide Level 30 21-32 mmol/L Blood Urea Nitrogen 15 7-18 mg/dL Creatinine 0.7 0.5-1.0 mg/dL Glomerular Filtration Rate Calc 90 >90 mL/min Random Glucose 103 70-105 mg/dL Total Calcium 8.4 L 8.5-10.1 mg/dL Magnesium Level 1.80 1.80-2.40 mg/dL White Cell Morphology Comment See comments Prothrombin Time 11.0 9.6-11.6 SEC Prothromb Time International Ratio 1.04 0.85-1.15 Activated Partial Thromboplast Time 30.8 26.3-35.5 SEC Hemoglobin A1c 5.0 4.0-6.0 % Estimated Average Glucose (eAG) 97 70-126 mg/dL Lactic Acid Level 1.3 0.8-2.5 mmol/L Total Bilirubin 0.4 0.2-1.0 mg/dL Direct Bilirubin 0.1 0.0-0.3 mg/dL Aspartate Amino Transf (AST/SGOT) 13 10-37 U/L Alanine Aminotransferase (ALT/SGPT) 17 12-78 U/L Alkaline Phosphatase 81 50-136 U/L Total Creatine Kinase 24 # 21-232 U/L Troponin I High Sensitivity 7 4-50 ng/L C-Reactive Protein, Quantitative 83.00 H 0.5-3.0 mg/L B-Type Natriuretic Peptide 391 H 0-100 pg/mL Total Protein 7.4 6.0-8.3 g/dL Albumin 3.3 L 3.5-5.0 g/dL Procalcitonin < 0.05 L 0.05-0.5 ng/mL Thyroid Stimulating Hormone (TSH) 0.95 # 0.36-3.74 uIU/mL Influenza Type A Antigen Negative For Type A NEGATIVE Influenza Type B Antigen Negative For Type B NEGATIVE SARS-CoV-2 Antigen (Rapid) PRESUMPTIVE NEGATIVE NEGATIVE Current Medications Medications (Trade) Dose Ordered Sig/Guerline Route PRN Reason Start Time Stop Time Status Last Admin Dose Admin Acetaminophen (TYLenol 500MG TAB) 500 mg Q6H PRN PO MILD PAIN (1-3) 01/10/25 12:00 02/09/25 11:59 Albuterol (DUOneb) 1 udvial ONCE STAT IH 01/10/25 09:25 01/10/25 09:39 DC Ceftriaxone Sodium (Rocephin 2gm Inj) 2 gm ONCE STAT IVPB 01/10/25 09:25 01/10/25 09:31 DC 01/10/25 10:06 2 GM Famotidine (Pepcid 20mg Vial) 20 mg BID IV 01/10/25 21:00 01/10/25 12:53 DC Furosemide (LASix 40MG VIAL) 40 mg Q12H IV 01/10/25 18:00 01/10/25 18:06 DC Furosemide (LASix 40MG VIAL) 80 mg ONCE STAT IV 01/10/25 10:08 01/10/25 10:10 DC 01/10/25 10:54 80 MG Ipratropium Grimsley (AtrovENT UD) 0.5 MG Q6H PRN IH SHORTNESS OF BREATH 01/10/25 12:30 02/09/25 12:29 Levofloxacin/ Dextrose 100 ml @ 100 mls/hr Q24H IV 01/10/25 13:00 01/20/25 12:59 01/10/25 13:28 100 MLS/HR Magnesium Sulfate 50 ml @ 0 mls/hr PROTOCOL PRN IV hypomagnesemia 01/10/25 12:00 02/09/25 11:59 Methylprednisolone Sodium Succinate (Solu-medROL 40MG) 40 mg Q12H IVP 01/10/25 18:00 02/09/25 17:59 01/11/25 05:06 40 MG Methylprednisolone Sodium Succinate (Solu-medROL 125MG) 125 mg ONCE STAT IVP 01/10/25 09:25 01/10/25 09:28 DC Metoprolol Tartrate (loprESSOR) 5 mg ONCE STAT IV 01/10/25 09:39 01/10/25 09:42 DC 01/10/25 10:07 5 MG Metoprolol Tartrate (loprESSOR) 5 mg ONCE STAT IV 01/10/25 10:48 01/10/25 10:50 DC 01/10/25 10:54 5 MG Metoprolol Tartrate (loprESSOR) 12.5 mg BID PO 01/10/25 21:00 02/09/25 20:59 01/11/25 09:55 12.5 MG Pantoprazole Sodium (PROTonix 40MG INJ) 40 mg DAILY IVP 01/10/25 13:00 02/09/25 12:59 01/11/25 09:55 40 MG Potassium Chloride 100 ml @ 100 mls/hr AD PRN IV POTASSIUM PROTOCOL 01/10/25 12:00 02/09/25 11:59 Potassium Chloride (K-Dur/Klor-Con 20meq) 20 meq AD PRN PO POTASSIUM PROTOCOL 01/10/25 12:00 02/09/25 11:59 01/10/25 18:49 20 MEQ Potassium Chloride (KCl 10% Elixir 20meq/15ml) 20 meq AD PRN PO POTASSIUM PROTOCOL 01/10/25 12:00 02/09/25 11:59 01/10/25 16:08 20 MEQ DIAGNOSTICS / RADIOLOGY: [ ] ASSESSMENT: Suspected sepsis POA Paroxysmal atrial fibrillation with RVR POA Acute hypoxic respiratory failure POA Suspected community-acquired pneumonia versus viral URI Acute CHF exacerbation with diastolic dysfunction Obesity BMI 39.8 Normocytic anemia Acute bronchitis PLAN: - patient to be admitted to [facility] -in reference to suspected sepsis, acute hypoxic respiratory.. Obtain echocardiogram. The patient will be started on metoprolol 25 mg b.i.d. we will request consultation with Cardiology. Good response to beta-noa and rate control, for anticoagulation to Cardiology. Patient states that she has never been placed on anticoagulation due to her anemia. Her chads score is three with proximally 6% stroke risk per year. Briefly discuss the Watchman procedure in the patient mentioned that she does have issues with anesthesia and therefore would prefer not to have that procedure done. Good response to Levaquin we will continue -CT chest shows no pneumonia -further orders per hospitalization course. check as to the source of her anemia peripheral smear review, iron panel, B12 and folic acid levels in a.m.. End of life care discussed with the patient and she is simply wanting ACLS protocol but no intubation. MELISSA CAMACHO MD Jan 11, 2025 10:10
--- NOTE | 2025-01-11 13:40 | PN ---
[facility] PROGRESS NOTE Date Patient Seen: Jan 11, 2025 Time of Visit: 13:37 Supervising Physician: Dr Grayson Harry Primary Care Physician: [Dr Garcia at [facility] ] Outpatient Specialists: [Dr Penny ] Inpatient Consults: [Dr Harry ] PROBLEM LIST: Acute bronchitis Afib RVR Acute diastolic CHF on the setting of afib RVR INTERVAL HISTORY: Patient was seen and examined, patient is awake alert and oriented, currently on nasal cannula at 2 L, good saturations Vital signs are stable Afebrile Nursing reports no acute events overnight Patient had 1 dose of Lasix, urine output appears to be about 750 from that dose She continues on nebulizer treatments, on Solu-Medrol along with levofloxacin GI prophylaxis with Protonix Heart rate AFib rate in the 90s Plan: Continue to follow cultures, antibiotics Supplemental O2 Neb treatments Solu-Medrol 40 mg q.12 Avoid albuterol Total time spent in the care of this patient greater than 46 minutes, this excludes any time spent on procedures teaching or education. REVIEW OF SYSTEMS: 12 point ROS reviewed with patient. Pertinent positives mentioned above. Otherwise negative. PHYSICAL EXAM: GENERAL: alert, weak, awake oriented x 3 HEENT: EOMI, Sclera non icteric, moist mucosa NECK: Supple, no JVD, trachea midline LUNGS: Clear breath sounds bilaterally. No wheezes HEART: irregular rate and rhythm. Normal S1 and S2, without murmurs ABD: Abdomen soft, nontender. Bowel sounds present EXT: No clubbing cyanosis or edema NEURO: Alert and oriented to person, follows commands Vital Signs (last 8hr) Date Time Temp Pulse Resp B/P (MAP) Pulse Ox O2 Delivery O2 Flow Rate FiO2 01/11/25 12:19 97.9 99 16 122/73 98 Nasal Cannula 2.0 01/11/25 08:00 99 Nasal Cannula* 2 28 01/11/25 07:28 98.4 100 16 111/42 99 Nasal Cannula 2.0 01/11/25 06:42 79 20 N/Cannula Low lpm 2.0 28 LABS: Hematology Labs: Test 01/11/25 03:46 01/10/25 09:39 Range/Units White Blood Count 7.1 # 4.8-10.8 K/uL Red Blood Count 3.47 L 4.00-5.50 MIL/uL Hemoglobin 9.6 L 12.0-16.0 g/dL Hematocrit 29.8 L 36-48 % Mean Corpuscular Volume 85.9 79-99 fL Mean Corpuscular Hemoglobin 27.7 27.0-33.0 pg Mean Corpuscular Hemoglobin Concent 32.2 32.0-36.0 g/dL Red Cell Distribution Width 14.6 11.0-15.5 % Platelet Count 331 130-400 K/uL Mean Platelet Volume 10.0 7.5-10.5 fL Immature Granulocyte % (Auto) 0.3 0-1 % Neutrophils (%) (Auto) 78.5 H 40.0-77.0 % Lymphocytes (%) (Auto) 10.6 L 21.0-51.0 % Monocytes (%) (Auto) 8.2 3.0-13.0 % Eosinophils (%) (Auto) 2.1 0.0-8.0 % Basophils (%) (Auto) 0.3 0.0-5.0 % Neutrophils # (Auto) 5.5 1.8-7.7 K/uL Lymphocytes # (Auto) 0.8 L 1.0-4.8 K/uL Monocytes # (Auto) 0.6 0.1-1.0 K/uL Eosinophils # (Auto) 0.15 0.00-0.70 K/uL Basophils # (Auto) 0.02 0.00-0.20 K/uL Absolute Immature Granulocyte (auto 0.02 0-1 K/uL Nucleated Red Blood Cells 0.0 0.0-0.19 % White Cell Morphology Comment See comments Chemistry Labs: Test 01/11/25 03:46 01/10/25 15:03 01/10/25 09:39 Range/Units Sodium Level 136 136-145 mmol/L Potassium Level 4.0 3.5-5.1 mmol/L Chloride Level 101 101-111 mmol/L Carbon Dioxide Level 30 21-32 mmol/L Blood Urea Nitrogen 15 7-18 mg/dL Creatinine 0.7 0.5-1.0 mg/dL Glomerular Filtration Rate Calc 90 >90 mL/min Random Glucose 103 70-105 mg/dL Total Calcium 8.4 L 8.5-10.1 mg/dL Magnesium Level 1.80 1.80-2.40 mg/dL Hemoglobin A1c 5.0 4.0-6.0 % Estimated Average Glucose (eAG) 97 70-126 mg/dL Lactic Acid Level 1.3 0.8-2.5 mmol/L Total Bilirubin 0.4 0.2-1.0 mg/dL Direct Bilirubin 0.1 0.0-0.3 mg/dL Aspartate Amino Transf (AST/SGOT) 13 10-37 U/L Alanine Aminotransferase (ALT/SGPT) 17 12-78 U/L Alkaline Phosphatase 81 50-136 U/L Total Creatine Kinase 24 # 21-232 U/L Troponin I High Sensitivity 7 4-50 ng/L C-Reactive Protein, Quantitative 83.00 H 0.5-3.0 mg/L B-Type Natriuretic Peptide 391 H 0-100 pg/mL Total Protein 7.4 6.0-8.3 g/dL Albumin 3.3 L 3.5-5.0 g/dL Procalcitonin < 0.05 L 0.05-0.5 ng/mL Thyroid Stimulating Hormone (TSH) 0.95 # 0.36-3.74 uIU/mL Coagulation Labs: Test 01/10/25 09:39 Range/Units Prothrombin Time 11.0 9.6-11.6 SEC Prothromb Time International Ratio 1.04 0.85-1.15 Activated Partial Thromboplast Time 30.8 26.3-35.5 SEC DIAGNOSTICS / RADIOLOGY RESULTS: [ ] PLAN NEURO: Minimize central acting medications as possible. Maintain fall precautions, adequate lighting during the day PULMONARY: Supplemental 02 as needed. Maintain aspiration precautions at all times CARDIOVASCULAR: Follow hemodynamics. Vital signs per facility protocol GI & NUTRITION: Continue with nutritional support. Continue stool softeners and laxatives as needed. KIDNEYS & ELECTROLYTES: Strict monitoring of intake, output and overall fluid balance. Avoid nephrotoxic medications to the extent possible. Medications to be dosed according to renal function. Monitor electrolytes and replace as needed ENDOCRINE: Maintain blood glucose between 100-180 at all times. Hypoglycemia protocol in place INFECTIOUS DISEASE: Trend temperature, WBC and procalcitonin level Follow cultures, deescalate antibiotics as soon as possible. Panculture if new onset fever ONCOLOGY/HEMATOLOGY/COAGULATION: Monitor for s/s of bleeding Monitor hemoglobin, coagulation studies as needed SKIN: Pressure ulcer prevention per facility protocol Specialty mattress ORTHO/REHAB: Continue PT/OT Prophylaxis: Continue GI and DVT prophylaxis Code Status: Full Resuscitation Disposition: MARIA ELENA PACHECO PAC Jan 11, 2025 13:40
--- NOTE | 2025-01-11 15:01 | NUR ---
INITIAL/DCP HOME Met w pt and spouse this afternoon to discuss dcp. Prior to admission pt was living at home w her . She is independent w ambulation and ADLs. She is able to drive herself where needed. Pt owns a rollator. Her preferred pharmacy is [facility]. Pt does not report any insecurities with food, chcf, and/or utilities. Pt states that discharge goal is to return home. Addendum: 01/11/25 at 1504 by WILLIAM LEON Amended: Links added.
--- NOTE | 2025-01-11 18:14 | PN ---
CARDIOLOGY Reason for consult: Atrial fibrillation HPI/story at presentation: 74 year old female with a past medical history significant for atrial fibrillation currently not on any oral anticoagulation due to anemia as per patient presented to the emergency department due to shortness of breath. Onset yesterday. Reports current tumblers supervisor is Dr. Penny. Denies any chest pain. Reports shortness of breath is worse with exertion. Initial 12 Lead EKG showing atrial fibrillation with RVR at 125 bpm. Past medical history: See below Allergies, Meds See chart Review of systems Review of Systems Constitutional: Negative for chills and fever. HENT: Negative for ear discharge and ear pain. Eyes: Negative for photophobia and discharge. Respiratory: Negative for cough, sputum production and stridor. Cardiovascular: Negative for chest pain and palpitations. Gastrointestinal: Negative for diarrhea and vomiting. Genitourinary: Negative for frequency. Musculoskeletal: Negative for myalgias. Skin: Negative for rash. Neurological: Negative for focal weakness and seizures. Endo/Heme/Allergies: Negative for polydipsia. Psychiatric/Behavioral: Negative for hallucinations. Vitals see chart PHYSICAL EXAMINATION GENERAL: The patient is alert and oriented*3 HEENT: Nonicteric sclerae, non traumatic HEART: Irregular rate and rhythm with no murmurs LUNGS: Clear to auscultation bilaterally ABDOMEN: No acute issues, non tender GENITAL, RECTAL: deferred SKIN: No rash NEUROLOGIC: NFND EXTREMITIES: No edema ASSESSMENT ATRIAL FIBRILLATION History of not on oral DOAC due to anemia Initial 12 Lead EKG showing atrial fibrillation with RVR at 125 bpm. SHORTNESS OF BREATH worse with exertion suspected pneumonia CORE MEASURES Pending OTHER MEDICAL PROBLEMS PLAN 01/10/2025 Order echocardiogram atrial fibrillation currently rate controlled will hold anticoagulation for now patient may benefit for a watchman procedure evaluation Continue with IV Lasix Continue with Metoprolol 12.5 BID 01/11/2025 Pending echocardiogram a fib currently rate controlled with metoprolol slight drop in hgb at 9.6 today hold anticoagulation ATTESTATION Case discussed with Dr. Sousa Vitals/Labs Vital Signs Date Time Temp Pulse Resp B/P (MAP) Pulse Ox O2 Delivery O2 Flow Rate FiO2 01/11/25 16:16 98.1 96 16 121/76 98 Nasal Cannula 2.0 01/11/25 08:00 28 Laboratory Tests 01/11/25 03:46 Medications Current Medications Methylprednisolone Sodium Succinate 125 mg ONCE STAT IVP; Start 01/10/25 at 09:25; Stop 01/10/25 at 09:28; Status DC Albuterol 1 udvial ONCE STAT IH; Start 01/10/25 at 09:25; Stop 01/10/25 at 09:39; Status DC Ceftriaxone Sodium 2 gm ONCE STAT IVPB Last administered on 01/10/25at 10:06; Start 01/10/25 at 09:25; Stop 01/10/25 at 09:31; Status DC Metoprolol Tartrate 5 mg ONCE STAT IV Last administered on 01/10/25at 10:07; Start 01/10/25 at 09:39; Stop 01/10/25 at 09:42; Status DC Furosemide 80 mg ONCE STAT IV Last administered on 01/10/25at 10:54; Start 01/10/25 at 10:08; Stop 01/10/25 at 10:10; Status DC Metoprolol Tartrate 5 mg ONCE STAT IV Last administered on 01/10/25at 10:54; Start 01/10/25 at 10:48; Stop 01/10/25 at 10:50; Status DC Famotidine 20 mg BID IV; Start 01/10/25 at 21:00; Stop 01/10/25 at 12:53; Status DC Levofloxacin/ Dextrose 100 ml @ 100 mls/hr Q24H IV Last administered on 01/11/25at 13:20; Start 01/10/25 at 13:00; Stop 01/20/25 at 12:59 Acetaminophen 500 mg Q6H PRN PO; Start 01/10/25 at 12:00; Stop 02/09/25 at 11:59 Metoprolol Tartrate 25 mg ONCE ONCE PO Last administered on 01/10/25at 13:00; Start 01/10/25 at 12:00; Stop 01/10/25 at 12:01; Status DC Furosemide 40 mg Q12H IV; Start 01/10/25 at 18:00; Stop 01/10/25 at 18:06; Status DC Methylprednisolone Sodium Succinate 40 mg Q12H IVP Last administered on 01/11/25at 17:13; Start 01/10/25 at 18:00; Stop 02/09/25 at 17:59 Potassium Chloride 100 ml @ 100 mls/hr AD PRN IV; Start 01/10/25 at 12:00; Stop 02/09/25 at 11:59 Potassium Chloride 20 meq AD PRN PO Last administered on 01/10/25at 16:08; Start 01/10/25 at 12:00; Stop 02/09/25 at 11:59 Potassium Chloride 20 meq AD PRN PO Last administered on 01/10/25at 18:49; Start 01/10/25 at 12:00; Stop 02/09/25 at 11:59 Magnesium Sulfate 50 ml @ 0 mls/hr PROTOCOL PRN IV; Start 01/10/25 at 12:00; Stop 02/09/25 at 11:59 Ipratropium Rumely 0.5 MG Q6H PRN IH; Start 01/10/25 at 12:30; Stop 02/09/25 at 12:29 Pantoprazole Sodium 40 mg DAILY IVP Last administered on 01/11/25at 09:55; Start 01/10/25 at 13:00; Stop 02/09/25 at 12:59 Sodium Chloride 4 ml STK-MED ONCE IH Last administered on 01/10/25at 14:25; Start 01/10/25 at 14:02; Stop 01/10/25 at 14:03; Status DC Metoprolol Tartrate 12.5 mg BID PO Last administered on 01/11/25at 09:55; Start 01/10/25 at 21:00; Stop 02/09/25 at 20:59 Sodium Chloride 4 ml STK-MED ONCE IH Last administered on 01/10/25at 19:16; Start 01/10/25 at 18:57; Stop 01/10/25 at 18:58; Status DC [facility] Jan 11, 2025 18:14
--- NOTE | 2025-01-11 23:33 | CONS ---
INFECTIOUS DISEASE CONSULTATION REQUESTING PHYSICIAN: Kolby Chaparro MD REASON FOR CONSULTATION: Possible pneumonia. HISTORY OF PRESENT ILLNESS: A 74-year-old female with history of atrial fibrillation and obesity, presented to the hospital with cough and shortness of breath. The patient also complained of some fever. Symptoms started 3 days back to presentation. The patient's T-max was 100.0. A CT of the chest has been done. It came back unremarkable. The patient has not been on antibiotic and steroid . No sick contacts. Denies chest pain, palpitations, orthopnea. No dysuria. No urinary frequency. PAST MEDICAL HISTORY: * Atrial fibrillation. * Hypertension. PAST SURGICAL HISTORY: * Cholecystectomy. ALLERGIES: SOCIAL HISTORY: No alcohol, tobacco or illicit drug use. FAMILY HISTORY: Noncontributory. REVIEW OF SYSTEMS: CONSTITUTIONAL: Denies fever or chills. No weight loss or night sweats. EYES: No eye pain. No photophobia or diplopia. HENT: No sore throat. No rhinorrhea or earache. NECK: No neck pain or neck swelling. RESPIRATORY: Positive for cough. No hemoptysis. No wheezing. CARDIOVASCULAR: No chest pain. No palpitation or orthopnea. GASTROINTESTINAL: Denies nausea, vomiting, abdominal pain. GENITOURINARY: No dysuria, urgency or urinary frequency. CENTRAL NERVOUS SYSTEM: No headache, dyspnea or slurred speech. PSYCHIATRY: No depression, no suicidal ideation. MUSCULOSKELETAL: No joint pain or joint swelling. PHYSICAL EXAMINATION: GENERAL: Elderly female, awake, in no acute distress. VITAL SIGNS: Temperature 98.4, pulse , respiratory rate 16, blood pressure 140/42. EYES: No icterus. Pupils equal and reactive. HENT: No oral thrush seen. Moist oral mucosa. NECK: Supple. No JVD or thyromegaly. LUNGS: Good air entry. No rales, no rhonchi. CARDIOVASCULAR: S1 and S2 regular. Tachycardic. No murmur heard. ABDOMEN: Soft, nontender. Bowel sounds are present. CENTRAL NERVOUS SYSTEM: Awake, alert, oriented x 3. No focal deficits. SKIN: No rashes, no itchiness. LYMPHATIC: No peripheral lymphadenopathy. BACK: No deformity, no pressure ulcer. MUSCULOSKELETAL: No joint swelling, erythema, or tenderness. LABORATORY DATA: Procalcitonin negative, sodium 140, potassium 3.4, BUN 13, creatinine 0.7, WBC 7.1, hemoglobin 9.6, platelets 331. Blood culture, no growth RADIOLOGY: CT chest unremarkable and shows possible mediastinal lymphadenopathy, . ASSESSMENT: A 74-year-old female presented with cough and shortness of breath. Current problems include: * Possible viral bronchitis. * Possible pneumonia. * * Atrial fibrillation. * Obesity. * Anemia. * . PLAN: * Continue Zosyn. * Continue Solu-Medrol. * Continue pain management. * Continue nutritional support. * . * Continue DVT prophylaxis. * The patient will be followed up closely. * Continue antiarrhythmic agent. Thank you for allowing me to participate in the care of this patient. TID: [id number] RECEIPT: [id number]
[2025-01-12] VITALS (8 sets, daily range): BP systolic 110–144; BP diastolic 50–86; PULSE 78–113; RESP 18–20; TEMP 97.3–99; O2SAT 99
[2025-01-12 03:48] LABS: NUCLEATED RED BLOOD CELLS 0.0 % (0.0-0.19); PLATELET COUNT (AUTO) 322 K/uL (130-400); RED BLOOD CELL COUNT(AUTO) 3.43 MIL/uL (4.00-5.50); RED CELL DISTRIBUTION WIDTH 14.1 % (11.0-15.5); WHITE BLOOD COUNT (AUTO) 8.3 K/uL (4.8-10.8)
[2025-01-12 04:13] LABS: % IRON SATURATION 6.6 % (22-44); IRON, SERUM 20.0 mcg/dL (50-170)
[2025-01-12 04:33] LABS: LYMPHOCYTES % (MANUAL) 2 % (22-44); MONOCYTES % (MANUAL) 1 % (2-9); SEGMENTED NEUTROPHILS % 97 % (40-70)
[2025-01-12 04:34] LABS: MAN.DIFF COMMENT-IMPRESSION MANUAL DIFFERENTIAL; PLATELET MORPHOLOGY COMMENT ADEQUATE
[2025-01-12 04:47] LABS: CREATININE 0.5 mg/dL (0.5-1.0); GLOMERULAR FILTR. RATE CALC 97.0 mL/min (>90); GLUCOSE,RANDOM 168.0 mg/dL (70-105); SODIUM SERUM 138.0 mmol/L (136-145); UREA NITROGEN, BLOOD 23.0 mg/dL (7-18)
--- NOTE | 2025-01-12 09:21 | PN ---
[facility] PROGRESS NOTE Date Patient Seen: Jan 12, 2025 Time of Visit: 09:19 Supervising Physician: Dr Reinier Cazares] Primary Care Physician: [Dr Garcia at [facility] ] Outpatient Specialists: [Dr Penny ] Inpatient Consults: [Dr Harry ] PROBLEM LIST: Acute bronchitis Afib RVR CHF Morbid obesity Chronic anemia INTERVAL HISTORY: Patient was seen and examined, patient is awake alert and oriented, on and off nasal cannula, good saturations Vital signs are stable Afebrile Nursing reports no acute events overnight She continues on nebulizer treatments, on Solu-Medrol along with levofloxacin Plan: Continue to follow cultures, antibiotics Supplemental O2 Neb treatments Solu-Medrol 40 mg q.12 Pending chest x-ray Per cards we are holding antiplatelet therapy, recommending possible Watchman device Total time spent in the care of this patient greater than 44 minutes, this excludes any time spent on procedures teaching or education. REVIEW OF SYSTEMS: 12 point ROS reviewed with patient. Pertinent positives mentioned above. Otherwise negative. PHYSICAL EXAM: GENERAL: alert, weak, awake oriented x 3 HEENT: EOMI, Sclera non icteric, moist mucosa NECK: Supple, no JVD, trachea midline LUNGS: Clear breath sounds bilaterally. No wheezes HEART: irregular rate and rhythm. Normal S1 and S2, without murmurs ABD: Abdomen soft, nontender. Bowel sounds present EXT: No clubbing cyanosis or edema NEURO: Alert and oriented to person, follows commands Vital Signs (last 8hr) Date Time Temp Pulse Resp B/P (MAP) Pulse Ox O2 Delivery O2 Flow Rate FiO2 01/12/25 07:46 20 N/Cannula Low lpm 2.0 28 01/12/25 07:40 97.9 81 20 144/50 99 Nasal Cannula 2.0 01/12/25 03:10 97.7 113 20 113/52 98 Nasal Cannula 2.0 LABS: Hematology Labs: Test 01/12/25 03:33 01/11/25 03:46 Range/Units White Blood Count 8.3 4.8-10.8 K/uL Red Blood Count 3.43 L 4.00-5.50 MIL/uL Hemoglobin 9.4 L 12.0-16.0 g/dL Hematocrit 30.1 L 36-48 % Mean Corpuscular Volume 87.8 79-99 fL Mean Corpuscular Hemoglobin 27.4 27.0-33.0 pg Mean Corpuscular Hemoglobin Concent 31.2 L 32.0-36.0 g/dL Red Cell Distribution Width 14.1 11.0-15.5 % Platelet Count 322 130-400 K/uL Mean Platelet Volume 8.9 7.5-10.5 fL Segmented Neutrophils % 97 H 40-70 % Lymphocytes % (Manual) 2 L 22-44 % Monocytes % (Manual) 1 L 2-9 % Nucleated Red Blood Cells 0.0 0.0-0.19 % Differential Comment MANUAL DIFFERENTIAL White Cell Morphology Comment See comments Platelet Morphology Comment ADEQUATE Red Blood Cell Morphology See comments Immature Granulocyte % (Auto) 0.3 0-1 % Neutrophils (%) (Auto) 78.5 H 40.0-77.0 % Lymphocytes (%) (Auto) 10.6 L 21.0-51.0 % Monocytes (%) (Auto) 8.2 3.0-13.0 % Eosinophils (%) (Auto) 2.1 0.0-8.0 % Basophils (%) (Auto) 0.3 0.0-5.0 % Neutrophils # (Auto) 5.5 1.8-7.7 K/uL Lymphocytes # (Auto) 0.8 L 1.0-4.8 K/uL Monocytes # (Auto) 0.6 0.1-1.0 K/uL Eosinophils # (Auto) 0.15 0.00-0.70 K/uL Basophils # (Auto) 0.02 0.00-0.20 K/uL Absolute Immature Granulocyte (auto 0.02 0-1 K/uL Chemistry Labs: Test 01/12/25 03:33 01/10/25 15:03 01/10/25 09:39 Range/Units Sodium Level 138 136-145 mmol/L Potassium Level 4.3 3.5-5.1 mmol/L Chloride Level 104 101-111 mmol/L Carbon Dioxide Level 27 21-32 mmol/L Blood Urea Nitrogen 23 H 7-18 mg/dL Creatinine 0.5 0.5-1.0 mg/dL Glomerular Filtration Rate Calc 97 >90 mL/min Random Glucose 168 #H 70-105 mg/dL Total Calcium 7.7 L 8.5-10.1 mg/dL Iron Level 20 L 50-170 mcg/dL Total Iron Binding Capacity 303 250-450 mcg/dL Percent Iron Saturation 6.6 L 22-44 % Vitamin B12 Level 512 193-986 pg/mL Folic Acid (LAB) 14.60 2-20 ng/mL Magnesium Level 1.80 1.80-2.40 mg/dL Hemoglobin A1c 5.0 4.0-6.0 % Estimated Average Glucose (eAG) 97 70-126 mg/dL Lactic Acid Level 1.3 0.8-2.5 mmol/L Total Bilirubin 0.4 0.2-1.0 mg/dL Direct Bilirubin 0.1 0.0-0.3 mg/dL Aspartate Amino Transf (AST/SGOT) 13 10-37 U/L Alanine Aminotransferase (ALT/SGPT) 17 12-78 U/L Alkaline Phosphatase 81 50-136 U/L Total Creatine Kinase 24 # 21-232 U/L Troponin I High Sensitivity 7 4-50 ng/L C-Reactive Protein, Quantitative 83.00 H 0.5-3.0 mg/L B-Type Natriuretic Peptide 391 H 0-100 pg/mL Total Protein 7.4 6.0-8.3 g/dL Albumin 3.3 L 3.5-5.0 g/dL Procalcitonin < 0.05 L 0.05-0.5 ng/mL Thyroid Stimulating Hormone (TSH) 0.95 # 0.36-3.74 uIU/mL Coagulation Labs: Test 01/10/25 09:39 Range/Units Prothrombin Time 11.0 9.6-11.6 SEC Prothromb Time International Ratio 1.04 0.85-1.15 Activated Partial Thromboplast Time 30.8 26.3-35.5 SEC DIAGNOSTICS / RADIOLOGY RESULTS: [ ] PLAN NEURO: Minimize central acting medications as possible. Maintain fall precautions, adequate lighting during the day PULMONARY: Supplemental 02 as needed. Maintain aspiration precautions at all times CARDIOVASCULAR: Follow hemodynamics. Vital signs per facility protocol GI & NUTRITION: Continue with nutritional support. Continue stool softeners and laxatives as needed. KIDNEYS & ELECTROLYTES: Strict monitoring of intake, output and overall fluid balance. Avoid nephrotoxic medications to the extent possible. Medications to be dosed according to renal function. Monitor electrolytes and replace as needed ENDOCRINE: Maintain blood glucose between 100-180 at all times. Hypoglycemia protocol in place INFECTIOUS DISEASE: Trend temperature, WBC and procalcitonin level Follow cultures, deescalate antibiotics as soon as possible. Panculture if new onset fever ONCOLOGY/HEMATOLOGY/COAGULATION: Monitor for s/s of bleeding Monitor hemoglobin, coagulation studies as needed SKIN: Pressure ulcer prevention per facility protocol Specialty mattress ORTHO/REHAB: Continue PT/OT Prophylaxis: Continue GI and DVT prophylaxis Code Status: Full Resuscitation Disposition: MARIA ELENA PACHECO PAC Jan 12, 2025 09:21
--- NOTE | 2025-01-12 12:07 | PN ---
[facility] PROGRESS NOTE Date of Service: Jan 12, 2025 Time of Service: 12:04 SUBJECTIVE: [ 74-year-old female who is hospital day 2. She states she has breathing better and the cough is much better she is now speaking in complete sentences. She states has no history of diabetes no history of prior strokes and has not had any stents or coronary artery bypass. She does have a history of atrial fibrillation but was never placed on anticoagulation because of her longstanding anemia. She states she has had this ever since she was a child. 01/12 patient is seen and examined at bedside, case discussed with the RN, no acute events overnight, at the time of my visit comfortable sitting in the chair, alert oriented x3, hemodynamically stable, denies chest pain, no landry rtness a breath, no nausea, no vomiting. BP 144/50, heart rate of 81, saturating 99% 2 L nasal cannula. Patient evaluated by union laborer, currently on metoprolol tartrate 12.5 mg p.o. b.i.d.. Echocardiogram pending to evaluate ejection fraction. Patient follows as an outpatient with union laborer Dr. Penny, has not been on aspirin or any other oral anticoagulation in the past due to history of anemia requiring blood transfusion in the past. She has an appointment this upcoming Sunday to see Dr. Penny as an outpatient. Remains on Levaquin IV. Pending chest x-ray. Continue to follow ID and Pulmonary input and recommendation. REVIEW OF SYSTEMS CONSTITUTIONAL: Denies fevers, chills, or night sweats. No unintentional weight loss reported. NEUROLOGICAL: Denies headache, amaurosis fugax, motor weakness, sensory d eficit, vertigo/spinning sensation, gait abnormalities, or tremors. ENT: No hearing loss, otalgia, otorrhea, rhinitis, rhinorrhea, hoarseness, or sore throat. CARDIOVASCULAR: Denied any chest pain. Positive for orthopnea. Denied any PND PULMONARY: Positive for shortness of breath, cough. Denied any sputum production, improved shortness for breath and decreased cough GASTROINTESTINAL: Denies any type of dysphagia to either liquids or solids. Denies nausea, vomiting, pyrosis, early satiety, abdominal pain, diarrhea, constipation, or changes in stool consistency or caliber. Denies coffee-ground emesis, hematemesis, hematochezia, or melanotic stools. GENITOURINARY: Denies frequency, urgency, nocturia, hematuria or incontinence (Storage/Irritative symptoms.) Low urinary stream, straining to void, urinary intermittency or hesitancy, splitting of the voiding stream, terminal dribbling. ENDOCRINOLOGIC: Denies polyuria, polydipsia, polyphagia or heat/cold intolerances. HEMATOLOGIC: Denies thrombophilia/previous clots, or coagulopathy/bleeding disorders. ONCOLOGIC: Denies personal history of malignancy. DERMATOLOGIC: Denies rashes or pruritus. PSYCHIATRIC: Denies any suicidal or homicidal ideation. Denies hallucinations. PHYSICAL EXAM GENERAL APPEARANCE: The patient is awake, alert, and oriented, in no acute cardiopulmonary distress. Patient is Obese NEUROLOGICAL: Cranial nerves II-XII grossly intact. Motor is 5/5 in bilateral upper and lower extremities proximal to distal. No sensory deficits. HEENT: Face is symmetric. Pupils are equal and reactive. Extraocular movements are intact. NECK: Supple. No JVD. No thyromegaly. No submental, submandibular, pre- /postauricular, occipital or supraclavicular lymphadenopathy. CHEST: Normal chest expansion. No Telemetry. LUNGS: Clear to auscultation bilaterally CARDIOVASCULAR: Irregularly irregular. S1 and S2 normal. No appreciable rubs, murmurs or gallops. ABDOMEN: Soft, nontender, and nondistended. There is no rebound, voluntary guarding, or rigidity. : Deferred. No Pratt. EXTREMITIES: Non-edematous and not cyanotic. No clubbing. Good capillary refill. SKIN: No skin breakdown. Vital Signs (last 8hr) Date Time Temp Pulse Resp B/P (MAP) Pulse Ox O2 Delivery O2 Flow Rate FiO2 01/12/25 07:46 20 N/Cannula Low lpm 2.0 28 01/12/25 07:40 97.9 81 20 144/50 99 Nasal Cannula 2.0 LABS: Laboratory: Test 01/12/25 03:33 01/11/25 03:46 01/10/25 15:03 Range/Units White Blood Count 8.3 4.8-10.8 K/uL Red Blood Count 3.43 L 4.00-5.50 MIL/uL Hemoglobin 9.4 L 12.0-16.0 g/dL Hematocrit 30.1 L 36-48 % Mean Corpuscular Volume 87.8 79-99 fL Mean Corpuscular Hemoglobin 27.4 27.0-33.0 pg Mean Corpuscular Hemoglobin Concent 31.2 L 32.0-36.0 g/dL Red Cell Distribution Width 14.1 11.0-15.5 % Platelet Count 322 130-400 K/uL Mean Platelet Volume 8.9 7.5-10.5 fL Segmented Neutrophils % 97 H 40-70 % Lymphocytes % (Manual) 2 L 22-44 % Monocytes % (Manual) 1 L 2-9 % Nucleated Red Blood Cells 0.0 0.0-0.19 % Differential Comment MANUAL DIFFERENTIAL White Cell Morphology Comment See comments Platelet Morphology Comment ADEQUATE Red Blood Cell Morphology See comments Sodium Level 138 136-145 mmol/L Potassium Level 4.3 3.5-5.1 mmol/L Chloride Level 104 101-111 mmol/L Carbon Dioxide Level 27 21-32 mmol/L Blood Urea Nitrogen 23 H 7-18 mg/dL Creatinine 0.5 0.5-1.0 mg/dL Glomerular Filtration Rate Calc 97 >90 mL/min Random Glucose 168 #H 70-105 mg/dL Total Calcium 7.7 L 8.5-10.1 mg/dL Iron Level 20 L 50-170 mcg/dL Total Iron Binding Capacity 303 250-450 mcg/dL Percent Iron Saturation 6.6 L 22-44 % Vitamin B12 Level 512 193-986 pg/mL Folic Acid (LAB) 14.60 2-20 ng/mL Immature Granulocyte % (Auto) 0.3 0-1 % Neutrophils (%) (Auto) 78.5 H 40.0-77.0 % Lymphocytes (%) (Auto) 10.6 L 21.0-51.0 % Monocytes (%) (Auto) 8.2 3.0-13.0 % Eosinophils (%) (Auto) 2.1 0.0-8.0 % Basophils (%) (Auto) 0.3 0.0-5.0 % Neutrophils # (Auto) 5.5 1.8-7.7 K/uL Lymphocytes # (Auto) 0.8 L 1.0-4.8 K/uL Monocytes # (Auto) 0.6 0.1-1.0 K/uL Eosinophils # (Auto) 0.15 0.00-0.70 K/uL Basophils # (Auto) 0.02 0.00-0.20 K/uL Absolute Immature Granulocyte (auto 0.02 0-1 K/uL Mycoplasma pneumoniae IgM Antibody NEGATIVE NEGATIVE Magnesium Level 1.80 1.80-2.40 mg/dL Current Medications Medications (Trade) Dose Ordered Sig/Guerline Route PRN Reason Start Time Stop Time Status Last Admin Dose Admin Acetaminophen (TYLenol 500MG TAB) 500 mg Q6H PRN PO MILD PAIN (1-3) 01/10/25 12:00 02/09/25 11:59 Albuterol (DUOneb) 1 udvial ONCE STAT IH 01/10/25 09:25 01/10/25 09:39 DC Ceftriaxone Sodium (Rocephin 2gm Inj) 2 gm ONCE STAT IVPB 01/10/25 09:25 01/10/25 09:31 DC 01/10/25 10:06 2 GM Famotidine (Pepcid 20mg Vial) 20 mg BID IV 01/10/25 21:00 01/10/25 12:53 DC Furosemide (LASix 40MG VIAL) 40 mg Q12H IV 01/10/25 18:00 01/10/25 18:06 DC Furosemide (LASix 40MG VIAL) 80 mg ONCE STAT IV 01/10/25 10:08 01/10/25 10:10 DC 01/10/25 10:54 80 MG Ipratropium [place] (AtrovENT UD) 0.5 MG Q6H PRN IH SHORTNESS OF BREATH 01/10/25 12:30 02/09/25 12:29 Iron Sucrose (VenoFER) 200 mg DAILY IV 01/13/25 09:00 01/15/25 09:00 Levofloxacin/ Dextrose 100 ml @ 100 mls/hr Q24H IV 01/10/25 13:00 01/20/25 12:59 01/11/25 13:20 100 MLS/HR Magnesium Sulfate 50 ml @ 0 mls/hr PROTOCOL PRN IV hypomagnesemia 01/10/25 12:00 02/09/25 11:59 Methylprednisolone Sodium Succinate (Solu-medROL 40MG) 40 mg Q12H IVP 01/10/25 18:00 02/09/25 17:59 01/12/25 05:20 40 MG Methylprednisolone Sodium Succinate (Solu-medROL 125MG) 125 mg ONCE STAT IVP 01/10/25 09:25 01/10/25 09:28 DC Metoprolol Tartrate (loprESSOR) 5 mg ONCE STAT IV 01/10/25 09:39 01/10/25 09:42 DC 01/10/25 10:07 5 MG Metoprolol Tartrate (loprESSOR) 5 mg ONCE STAT IV 01/10/25 10:48 01/10/25 10:50 DC 01/10/25 10:54 5 MG Metoprolol Tartrate (loprESSOR) 12.5 mg BID PO 01/10/25 21:00 02/09/25 20:59 01/12/25 09:14 12.5 MG Pantoprazole Sodium (PROTonix 40MG INJ) 40 mg DAILY IVP 01/10/25 13:00 01/12/25 09:25 DC 01/12/25 09:14 40 MG Pantoprazole Sodium (PROTonix 40MG TAB) 40 mg DAILY PO 01/13/25 09:00 02/12/25 08:59 Potassium Chloride 100 ml @ 100 mls/hr AD PRN IV POTASSIUM PROTOCOL 01/10/25 12:00 02/09/25 11:59 Potassium Chloride (K-Dur/Klor-Con 20meq) 20 meq AD PRN PO POTASSIUM PROTOCOL 01/10/25 12:00 02/09/25 11:59 01/10/25 18:49 20 MEQ Potassium Chloride (KCl 10% Elixir 20meq/15ml) 20 meq AD PRN PO POTASSIUM PROTOCOL 01/10/25 12:00 02/09/25 11:59 01/10/25 16:08 20 MEQ DIAGNOSTICS / RADIOLOGY: [ ] ASSESSMENT: Suspected sepsis POA Paroxysmal atrial fibrillation with RVR POA Acute hypoxic respiratory failure POA Suspected community-acquired pneumonia versus viral URI Acute CHF exacerbation with diastolic dysfunction Obesity BMI 39.8 Normocytic anemia Acute bronchitis PLAN: patient is seen and examined at bedside, case discussed with the RN, no acute e vents overnight, at the time of my visit comfortable sitting in the chair, alert oriented x3, hemodynamically stable, denies chest pain, no shortness a breath, no nausea, no vomiting. BP 144/50, heart rate of 81, saturating 99% 2 L nasal cannula. Patient evaluated by union laborer, currently on metoprolol tartrate 12.5 mg p.o. b.i.d.. Echocardiogram pending to evaluate ejection fraction. Patient follows as an outpatient with union laborer Dr. Penny, has not been on aspirin or any other oral anticoagulation in the past due to history of anemia requiring blood transfusion in the past. She has an appointment this upcoming Sunday to see Dr. Penny as an outpatient. Remains on Levaquin IV. Pending chest x-ray. Continue to follow ID and Pulmonary input and recommendation. NEURO: Minimize central acting medications as possible. Fall Precautions. Well lighted room through the day and minimize interruptions through the night to prevent acute delirium. PULMONARY: Supplemental 02 as needed BiPAP as necessary, for respiratory distress Titrate Fio2 to keep Spo2 > or = 90% DuoNebs and CPT as needed IS hourly while awake for pulmonary hygiene prn Out of bed to chair as tolerated Maintain aspiration precautions at all times CARDIOVASCULAR: Follow hemodynamics. Vital signs per facility protocol GI & NUTRITION: Continue nutritional support Aspirations precautions Prokinetic agents and laxatives as needed KIDNEYS & ELECTROLYTES: Strict monitoring of intake and output Daily weights Avoid nephrotoxic agents Monitor electrolytes and replace as needed Goal urine output of 30mL/hr or 0.5mL/kg/hr Medications to be dosed according to renal function. Avoid contrast if possible ENDOCRINE: Maintain blood glucose between 100-180 at all times. Insulin sliding scale for blood glucose management Hypoglycemia and hyperglycemia protocol in place INFECTIOUS DISEASE: Trend temperature, WBC and procalcitonin level Follow cultures, deescalate antibiotics as soon as possible. Panculture if new onset fever HEMATOLOGY & COAGULATION: Monitor H&H. Keep Hgb > 7 Transfuse 1 unit of PRBC for Hgb < 7 Transfuse 1 pack of platelets of platelets < 20, 000 Watch for any signs and symptoms of bleeding SKIN: Pressure ulcer prevention per facility protocol Specialty mattress as needed ORTHO/REHAB Continue PT/OT PRN: MEDICATIONS Tylenol 650 mg po every 4 hrs for fever zofran 4 mg IV every 6 hrs for n/v Hydralazine 5 mg IV every 4 hrs systolic pressure > 160 bowel regiment: lactulose 20 gm PO BID PRN constipation Supportive measures: Continue GI and DVT prophylaxis Disposition: Pending improvement in clinical condition All questions answered time spent: > 35 min MELANY CHRISTIANSON MD Jan 12, 2025 12:07
--- NOTE | 2025-01-12 17:49 | PN ---
INFECTIOUS DISEASE PROGRESS NOTE Date of Service: Jan 12, 2025 SUBJECTIVE: [ ] PHYSICAL EXAM EYES: Anicteric. Pupils equal and reactive. HENT: No oral thrush seen, moist Oral mucosa NECK: Supple, no JVD or thyromegaly. LUNGS: Good air entry. No rales, no rhonchi. CARDIOVASCULAR: S1, S2 regular. No murmur heard. ABDOMEN: Soft, non tender, bowel sounds present, no organomegaly CENTRAL NERVOUS SYSTEM: Awake, alert, oriented x 3. No focal deficits. SKIN: No rashes, no swelling. LYMPHATICS: No peripheral lymphadenopathy MUSCULOSKELETAL: No joint swelling, erythema or tenderness. EXTREMITIES: No cyanosis or clubbing BACK: No deformity, no pressure ulcer. GENITOURINARY: No dysuria or hematuria Vital Sign (Last 12 Hours) 01/12/25 01/12/25 01/12/25 01/12/25 07:40 07:46 12:00 16:00 Temp 97.9 97.3 98.8 Pulse 81 91 95 Resp B/P (MAP) 144/50 119/57 120/65 Pulse Ox 99 99 99 O2 Delivery Nasal Cannula N/Cannula Low lpm Nasal Cannula Room Air O2 Flow Rate 2.0 2.0 2.0 FiO2 28 Intake & Output (last 24hrs) 01/11/25 01/11/25 01/12/25 15:00 23:00 07:00 Intake Total 100.0 ml 240 ml Output Total 400 ml 600 ml Balance 100.0 ml -400 ml -360 ml LABS: Laboratory: Test 01/12/25 03:33 01/11/25 03:46 Range/Units White Blood Count 8.3 4.8-10.8 K/uL Red Blood Count 3.43 L 4.00-5.50 MIL/uL Hemoglobin 9.4 L 12.0-16.0 g/dL Hematocrit 30.1 L 36-48 % Mean Corpuscular Volume 87.8 79-99 fL Mean Corpuscular Hemoglobin 27.4 27.0-33.0 pg Mean Corpuscular Hemoglobin Concent 31.2 L 32.0-36.0 g/dL Red Cell Distribution Width 14.1 11.0-15.5 % Platelet Count 322 130-400 K/uL Mean Platelet Volume 8.9 7.5-10.5 fL Segmented Neutrophils % 97 H 40-70 % Lymphocytes % (Manual) 2 L 22-44 % Monocytes % (Manual) 1 L 2-9 % Nucleated Red Blood Cells 0.0 0.0-0.19 % Differential Comment MANUAL DIFFERENTIAL White Cell Morphology Comment See comments Platelet Morphology Comment ADEQUATE Red Blood Cell Morphology See comments Sodium Level 138 136-145 mmol/L Potassium Level 4.3 3.5-5.1 mmol/L Chloride Level 104 101-111 mmol/L Carbon Dioxide Level 27 21-32 mmol/L Blood Urea Nitrogen 23 H 7-18 mg/dL Creatinine 0.5 0.5-1.0 mg/dL Glomerular Filtration Rate Calc 97 >90 mL/min Random Glucose 168 #H 70-105 mg/dL Total Calcium 7.7 L 8.5-10.1 mg/dL Iron Level 20 L 50-170 mcg/dL Total Iron Binding Capacity 303 250-450 mcg/dL Percent Iron Saturation 6.6 L 22-44 % Vitamin B12 Level 512 193-986 pg/mL Folic Acid (LAB) 14.60 2-20 ng/mL Immature Granulocyte % (Auto) 0.3 0-1 % Neutrophils (%) (Auto) 78.5 H 40.0-77.0 % Lymphocytes (%) (Auto) 10.6 L 21.0-51.0 % Monocytes (%) (Auto) 8.2 3.0-13.0 % Eosinophils (%) (Auto) 2.1 0.0-8.0 % Basophils (%) (Auto) 0.3 0.0-5.0 % Neutrophils # (Auto) 5.5 1.8-7.7 K/uL Lymphocytes # (Auto) 0.8 L 1.0-4.8 K/uL Monocytes # (Auto) 0.6 0.1-1.0 K/uL Eosinophils # (Auto) 0.15 0.00-0.70 K/uL Basophils # (Auto) 0.02 0.00-0.20 K/uL Absolute Immature Granulocyte (auto 0.02 0-1 K/uL Mycoplasma pneumoniae IgM Antibody NEGATIVE NEGATIVE DIAGNOSTICS / RADIOLOGY: PATIENT: CHULA SHIPMAN ACCT: [id number] LOC: [facility] U: [id number] AGE/SX: 74/F ROOM: [facility] RE01/10/[address]: VIRIDIANA NULL MD : [id number] BED: 1 DIS: STATUS: ADM IN TLOC: SPEC: [id number] ION: 01/10/25 STATUS: RES REQ: [id number] RECD: 01/11/25 [facility] DR: DIANA KAPOOR MD SOURCE: BLOOD ENTR: 01/11/[address] [facility] [address]: TERRANCE ESCALONA MD SPDC: BLOOD NONE ORDERED: AERO ID & SENS Procedure Result Essence Date-Time AEROBIC ID & SENSITIVITIES Preliminary 01/12/25-1141 MRL COLONY DESCRIPTION: DAY 1: GRAM STAIN FROM BLOOD CULTURE BOTTLE GRAM POSITIVE COCCI IN [facility] P[facility] BOTTLE ISOLATION IN PROGRESS ASSESSMENT: Gram-positive bacteremia possible contaminant. Pneumonia. PLAN: Continue Levaquin. This case was reviewed and discussed with my supervising physician Dr. Cintron and the above assessment and plan was formulated and agreed upon. ATTESTATION BY PHYSICIAN I have seen and examined the patient. I reviewed the documentation, medical decision making, and treatment plan as noted by the mid-level provider above. I agree with the findings and plan of care. DIONI CINTRON MD, MIRTA L [facility] Jan 12, 2025 17:49
--- NOTE | 2025-01-12 17:59 | HMCSR ---
APPROVED REPORT EXAM: Two-dimensional and M-mode echocardiogram with Doppler and color Doppler. INDICATION ICD: Atrial Fibrillation 2D Dimensions RVDd3.6 cmLVEF(%)68.5 (>50%)LVED Vol(simp.)52.9 mL IVSd0.9 (0.7-1.1cm)FS(%)38 %LVES Vol(simp.)26.1 mL LVDd4.1 (3.8-5.6cm)LA (2D)4.1 (1.6-4.0cm)LVEF(%, simp.)51 % PWd0.9 (0.7-1.1cm)Ao Root(2D)2.6 (2.0-3.7cm)LA ESV INDEX (BP)35.57 mL/m2 LVDs2.6 (2.5-4.0cm)LVOT diam1.9 (1.8-2.4cm) IVC diam1.9 cm Aortic Valve AoV Vmax1.4 m/Dayna Peak GR7.9 mmHgLVOT Vmax1.1 m/s AoV VTI0.3 mAo Mean GR4.5 mmHgLVOT VTI0.21 m TINA (VMAX)2.17 cm2AVA (VTI) 2.1 cm2 Mitral Valve MV E Nibh942.7 cm/sDECEL Ecpp212 ms P 1/2 T62 ms MVA (PHT)3.6 cm2 TDI E/E' Vauqps47.2E/E' Lateral9.4 Medial E' Peak V7.38 cm/sLateral E' Peak V11.13 cm/s Pulmonary Valve PV Vmax1.2 m/sPV VTI0.20 mPV Mean GR3.4 mmHg PV Peak GR5.9 mmHg Tricuspid Valve TR Vmax2.4 m/sRVSP20.9 mmHg TR Peak GR24.4 mmHg Left Ventricle The left ventricle is normal size. Normal wall motion There is normal left ventricular wall thickness . LVEF is 55-60% The left ventricular diastolic function is normal. Right Ventricle The right ventricle is normal size. Right ventricular systolic function is mildly reduced. Atria The left atrium is mildly dilated. The right atrium size is normal. Aortic Valve The aortic valve is normal in structure. No aortic regurgitation is present. There is no aortic valvu lar stenosis. Mitral Valve The mitral valve is normal in structure. There is no mitral valve regurgitation noted. There is no mi tral valve stenosis. Tricuspid Valve The tricuspid valve is normal in structure. There is mild tricuspid valve regurgitation noted. Pulmonic Valve The pulmonary valve is normal in structure. There is no pulmonic valvular regurgitation. Great Vessels The aortic root is normal in size. The IVC is normal in size and collapses >50% with inspiration. Pericardium There is no pericardial effusion. Conclusion LVEF is 55-60% The left ventricular diastolic function is normal. There is normal left ventricular wall thickness. The left ventricle is normal size. Normal wall motion Right ventricular systolic function is mildly reduced. The left atrium is mildly dilated. There is mild tricuspid valve regurgitation noted. There is no pericardial effusion. Study quality was adequate
--- NOTE | 2025-01-12 20:08 | PN ---
CARDIOLOGY Reason for consult: Atrial fibrillation HPI/story at presentation: 74 year old female with a past medical history significant for atrial fibrillation currently not on any oral anticoagulation due to anemia as per patient presented to the emergency department due to shortness of breath. Onset yesterday. Reports current sap fico business analyst is Dr. Penny. Denies any chest pain. Reports shortness of breath is worse with exertion. Initial 12 Lead EKG showing atrial fibrillation with RVR at 125 bpm. Past medical history: See below Allergies, Meds See chart Review of systems Review of Systems Constitutional: Negative for chills and fever. HENT: Negative for ear discharge and ear pain. Eyes: Negative for photophobia and discharge. Respiratory: Negative for cough, sputum production and stridor. Cardiovascular: Negative for chest pain and palpitations. Gastrointestinal: Negative for diarrhea and vomiting. Genitourinary: Negative for frequency. Musculoskeletal: Negative for myalgias. Skin: Negative for rash. Neurological: Negative for focal weakness and seizures. Endo/Heme/Allergies: Negative for polydipsia. Psychiatric/Behavioral: Negative for hallucinations. Vitals see chart PHYSICAL EXAMINATION GENERAL: The patient is alert and oriented*3 HEENT: Nonicteric sclerae, non traumatic HEART: Irregular rate and rhythm with no murmurs LUNGS: Clear to auscultation bilaterally ABDOMEN: No acute issues, non tender GENITAL, RECTAL: deferred SKIN: No rash NEUROLOGIC: NFND EXTREMITIES: No edema ASSESSMENT ATRIAL FIBRILLATION History of not on oral DOAC due to anemia Initial 12 Lead EKG showing atrial fibrillation with RVR at 125 bpm. SHORTNESS OF BREATH worse with exertion suspected pneumonia CORE MEASURES Pending OTHER MEDICAL PROBLEMS reviewed PLAN 01/10/2025 Order echocardiogram atrial fibrillation currently rate controlled will hold anticoagulation for now patient may benefit for a watchman procedure evaluation Continue with IV Lasix Continue with Metoprolol 12.5 BID 01/11/2025 Pending echocardiogram a fib currently rate controlled with metoprolol slight drop in hgb at 9.6 today hold anticoagulation 01/12/2025 Echocardiogram was within normal limits, rates are controlled, hemoglobin stable also, patient is going on anticoagulation, potential plans for consideration for watchman as an outpatient. They can be discharged home tomorrow. Seen and examined 01/12/2025 at around 8 PM. ATTESTATION I was involved substantially in the care of this patient Number and complexity of problems addressed: 1 acute illness with systemic features Amount and or complexity of data Review of prior external note(s) from each unique source: 2+ Ordering of each unique test : 0 Review of the result(s) of each unique test: 2+ Assessment requiring an independent historian(s): No Independent interpretation of test performed by another MD/QHCP/appropriate source (not separately reported) : No Discussion of management or test interpretation with external MD/QHCP/appropriate source (not separately reported) : No Risk status (cardiac, billing related):Moderate Vitals/Labs Vital Signs Date Time Temp Pulse Resp B/P (MAP) Pulse Ox O2 Delivery O2 Flow Rate FiO2 01/12/25 19:37 98 20 N/Cannula Low lpm 2.0 28 01/12/25 16:00 98.8 120/65 99 Laboratory Tests 01/12/25 03:33 Medications Current Medications Methylprednisolone Sodium Succinate 125 mg ONCE STAT IVP; Start 01/10/25 at 09:25; Stop 01/10/25 at 09:28; Status DC Albuterol 1 udvial ONCE STAT IH; Start 01/10/25 at 09:25; Stop 01/10/25 at 09:39; Status DC Ceftriaxone Sodium 2 gm ONCE STAT IVPB Last administered on 01/10/25at 10:06; Start 01/10/25 at 09:25; Stop 01/10/25 at 09:31; Status DC Metoprolol Tartrate 5 mg ONCE STAT IV Last administered on 01/10/25at 10:07; Start 01/10/25 at 09:39; Stop 01/10/25 at 09:42; Status DC Furosemide 80 mg ONCE STAT IV Last administered on 01/10/25at 10:54; Start 01/10/25 at 10:08; Stop 01/10/25 at 10:10; Status DC Metoprolol Tartrate 5 mg ONCE STAT IV Last administered on 01/10/25at 10:54; Start 01/10/25 at 10:48; Stop 01/10/25 at 10:50; Status DC Famotidine 20 mg BID IV; Start 01/10/25 at 21:00; Stop 01/10/25 at 12:53; Status DC Levofloxacin/ Dextrose 100 ml @ 100 mls/hr Q24H IV Last administered on 01/12/25at 13:13; Start 01/10/25 at 13:00; Stop 01/12/25 at 14:21; Status DC Acetaminophen 500 mg Q6H PRN PO; Start 01/10/25 at 12:00; Stop 02/09/25 at 11:59 Metoprolol Tartrate 25 mg ONCE ONCE PO Last administered on 01/10/25at 13:00; Start 01/10/25 at 12:00; Stop 01/10/25 at 12:01; Status DC Furosemide 40 mg Q12H IV; Start 01/10/25 at 18:00; Stop 01/10/25 at 18:06; Status DC Methylprednisolone Sodium Succinate 40 mg Q12H IVP Last administered on 01/12/25at 05:20; Start 01/10/25 at 18:00; Stop 01/12/25 at 17:05; Status DC Potassium Chloride 100 ml @ 100 mls/hr AD PRN IV; Start 01/10/25 at 12:00; Stop 02/09/25 at 11:59 Potassium Chloride 20 meq AD PRN PO Last administered on 01/10/25at 16:08; Start 01/10/25 at 12:00; Stop 02/09/25 at 11:59 Potassium Chloride 20 meq AD PRN PO Last administered on 01/10/25at 18:49; Start 01/10/25 at 12:00; Stop 02/09/25 at 11:59 Magnesium Sulfate 50 ml @ 0 mls/hr PROTOCOL PRN IV; Start 01/10/25 at 12:00; Stop 02/09/25 at 11:59 Ipratropium [place] 0.5 MG Q6H PRN IH; Start 01/10/25 at 12:30; Stop 02/09/25 at 12:29 Pantoprazole Sodium 40 mg DAILY IVP Last administered on 01/12/25at 09:14; Start 01/10/25 at 13:00; Stop 01/12/25 at 09:25; Status DC Sodium Chloride 4 ml STK-MED ONCE IH Last administered on 01/10/25at 14:25; Start 01/10/25 at 14:02; Stop 01/10/25 at 14:03; Status DC Metoprolol Tartrate 12.5 mg BID PO Last administered on 01/12/25at 09:14; Start 01/10/25 at 21:00; Stop 02/09/25 at 20:59 Sodium Chloride 4 ml STK-MED ONCE IH Last administered on 01/10/25at 19:16; Start 01/10/25 at 18:57; Stop 01/10/25 at 18:58; Status DC Iron Sucrose 200 mg DAILY IV; Start 01/13/25 at 09:00; Stop 01/15/25 at 09:00 Pantoprazole Sodium 40 mg DAILY PO; Start 01/13/25 at 09:00; Stop 02/12/25 at 08:59 Levofloxacin 500 mg DAILY PO; Start 01/13/25 at 09:00; Stop 01/23/25 at 08:59 TRAN CURTIS MD Jan 12, 2025 20:08
--- NOTE | 2025-01-12 21:43 | HMCIMG ---
EXAM: CR Chest, 1 View CLINICAL HISTORY: PP COMPARISON: CXR 01/10 8:39 CDT FINDINGS: LUNGS: No focal mass, consolidation, or acute pulmonary abnormality. Pulmonary vascularity appears within normal limits. PLEURAL SPACES: No pleural effusion or pneumothorax detected. MEDIASTINUM: Mild cardiomegaly noted. Mediastinal contours otherwise within normal limits. BONES: No acute osseous abnormality identified. IMPRESSION: 1. No acute cardiopulmonary findings. 2. Mild cardiomegaly. /[place]
[2025-01-13] VITALS: BP 130/65; PULSE 101; RESP 18; TEMP 97.9
[2025-01-13 04:00] VITALS: BP 128/57; PULSE 92; RESP 18
[2025-01-13 05:09] LABS: NUCLEATED RED BLOOD CELLS 0.0 % (0.0-0.19); PLATELET COUNT (AUTO) 351.0 K/uL (130-400); RED BLOOD CELL COUNT(AUTO) 3.52 MIL/uL (4.00-5.50); RED CELL DISTRIBUTION WIDTH 14.0 % (11.0-15.5); WHITE BLOOD COUNT (AUTO) 10.2 K/uL (4.8-10.8)
[2025-01-13 05:54] LABS: ASPARTATE AMINOTRANSFERASE 12.0 U/L (10-37); CREATININE 0.8 mg/dL (0.5-1.0); GLOMERULAR FILTR. RATE CALC 76.0 mL/min (>90); GLUCOSE,RANDOM 107.0 mg/dL (70-105); SODIUM SERUM 143.0 mmol/L (136-145); TOTAL PROTEIN, SERUM 6.2 g/dL (6.0-8.3); UREA NITROGEN, BLOOD 30.0 mg/dL (7-18)
[2025-01-13 07:00] VITALS: BP 119/82; PULSE 111; RESP 18; TEMP 97.7
[2025-01-13 07:24] VITALS: PULSE 90; RESP 20; O2SAT 99
[2025-01-13 08:00] VITALS: O2SAT 99
[2025-01-13] MEDS ORDERED: METO25 PO (09:18)
[2025-01-13 11:00] VITALS: BP 99/51; PULSE 99; RESP 20; TEMP 97.5
[2025-01-13] MEDS ORDERED: LEVO-70 PO (11:15)
--- NOTE | 2025-01-13 11:19 | DS ---
Discharge Summary Hospital Course Summary: Date of service 01/13/2025 The patient initially admitted to the hospital January 10, 2025 with the following history of the present illness: 74-year-old female with past medical history of atrial fibrillation not on anticoagulation who presented to the hospital secondary to cough, congestion for the past three days. The patient states around three days ago she noted that she was having increased shortness of breath which was present at rest and with exertion. She also noted fevers and felt like she was down with the ' cold'. She has cough but the cough is nonproductive. Denies any chest pain, abdominal pain, nausea, vomiting, denied any changes in her bowel movement. Denied any dysuria, changes in her urinary frequency. Denied any lower extremity swelling. She denies any history of blood clots and states she has been active at home. She sees Dr. Penny who is her primary molding machine operator helper. She is currently not taking any anticoagulation at home but is maintained on metoprolol b.i.d.. She did not take her dose in the morning today. Labs in the ER were notable for white count of 10.0, hemoglobin was 10.1, platelet count was 335 K, sodium was 136, potassium was 3.7, creatinine was 0.6, BNP was 391, troponin was seven, albumin was 3.3 Chest x-ray did not show any acute infiltrates Temperature on presentation was 100.0, heart rate was 107, respiratory rate was 28, blood pressure was 147/65 the patient was placed on2 L nasal cannula saturating around 98%. In the ER patient received Lasix 80 mg, Rocephin, Solu-Medrol HOSPITAL COURSE 01/12 patient is seen and examined at bedside, case discussed with the RN, no acute events overnight, at the time of my visit comfortable sitting in the chair, alert oriented x3, hemodynamically stable, denies chest pain, no shortness a breath, no nausea, no vomiting. BP 144/50, heart rate of 81, saturating 99% 2 L nasal cannula. Patient evaluated by molding machine operator helper, currently on metoprolol tartrate 12.5 mg p.o. b.i.d.. Echocardiogram pending to evaluate ejection fraction. Patient follows as an outpatient with molding machine operator helper Dr. Penny, has not been on aspirin or any other oral anticoagulation in the past due to history of anemia requiring blood transfusion in the past. She has an appointment this upcoming Sunday to see Dr. Penny as an outpatient. Remains on Levaquin IV. Pending chest x-ray. Continue to follow ID and Pulmonary input and recommendation. 01/13 patient remains hemodynamically stable, afebrile, saturating normal on room air, alert oriented x3, no chest pain, shortness shortness for breath, no nausea, no vomiting. Echocardiogram reported as follows:' LVEF is 55-60% The left ventricular diastolic function is normal. There is normal left ventricular wall thickness. The left ventricle is normal size. Normal wall motion Right ventricular systolic function is mildly reduced. The left atrium is mildly dilated. There is mild tricuspid valve regurgitation noted. There is no pericardial effusion. Study quality was adequate Patient cleared from Cardiology standpoint to be discharged home. Patient to follow up with primary molding machine operator helper Dr. Penny as an outpatient tomorrow. Patient currently not on anticoagulation due to history of anemia has been received PRBC in the past. Discussed with the patient that she needs to discuss other options with molding machine operator helper. Consideration is to be given for possible Watchman procedure. Explained to the patient that without anticoagulation she is at high risk for stroke, however she prefers not to anticoagulation, no aspirin since she is allergic. She prefers to follow up with her primary molding machine operator helper as an outpatient tomorrow. is at the bedside during my visit today. Plan is for the patient to be discharged home today. Pleat Taper(s): Cardiology, Pulmonary and Infectious Disease Assessment/Plan: Final diagnosis Suspected sepsis POA Paroxysmal atrial fibrillation with RVR POA Acute hypoxic respiratory failure POA Suspected community-acquired pneumonia versus viral URI Acute CHF exacerbation with diastolic dysfunction Obesity BMI 39.8 Normocytic anemia Acute bronchitis Discharge Instructions: Patient to follow with her primary care physician as an outpatient, as well as molding machine operator helper as an outpatient. Return to the hospital if condition changes. Patient agreed with plan and understood the information provided. Home Medications: Reported Medications Ferrous Sulfate (Ferrous Sulfate) 325 Mg (65 Mg Iron) Tablet, 1 TAB PO DAILY for 30 Days, #30 TAB 0 Refills 01/10/25 Metoprolol Tartrate (Metoprolol Tartrate) 25 Mg Tablet, 1 TAB PO DAILY for 30 Days, #60 TAB 0 Refills 01/10/25 Discontinued Scripts Levofloxacin (Levofloxacin) 500 Mg Tablet, 500 MG PO DAILY, #7 TAB Prov:LIZBET BAUTISTA 07/12/23 Metoprolol Tartrate (Lopressor) 25 Mg Tab, 25 MG PO BID, #60 TAB Prov:LIZBET BAUTISTA 07/12/23 Atorvastatin Calcium (LIPITOR) 40 Mg Tablet, 40 MG PO HS, #30 TAB Prov:LIZBET BAUTISTA 07/12/23 Time spent arranging discharge: 31-60 minutes MELANY CHRISTIANSON MD Jan 13, 2025 11:19
--- NOTE | 2025-01-13 12:09 | NUR ---
DISMISSAL INSTRUCTIONS GIVEN TO PATIENT, VERBALIZED UNDERSTANDING. REMOVED TELE PACK. PATIENT STATED SHE WOULD LIKE TO EAT LUNCH THEN GET DRESSED AND THEN SHE WILL BE READY TO BE TAKEN TO PRIVATE CAR.
--- NOTE | 2025-01-13 12:55 | NUR ---
TAKEN TO PRIVATE CAR ALONG WITH PERSONAL BELONGINGS VIA WHEELCHAIR BY GAYLE BEARDEN.
--- NOTE | 2025-01-13 16:54 | PN ---
INFECTIOUS DISEASE PROGRESS NOTE Date of Service: Jan 13, 2025 SUBJECTIVE: [ ] PHYSICAL EXAM EYES: Anicteric. Pupils equal and reactive. HENT: No oral thrush seen, moist Oral mucosa NECK: Supple, no JVD or thyromegaly. LUNGS: Good air entry. No rales, no rhonchi. CARDIOVASCULAR: S1, S2 regular. No murmur heard. ABDOMEN: Soft, non tender, bowel sounds present, no organomegaly CENTRAL NERVOUS SYSTEM: Awake, alert, oriented x 3. No focal deficits. SKIN: No rashes, no swelling. LYMPHATICS: No peripheral lymphadenopathy MUSCULOSKELETAL: No joint swelling, erythema or tenderness. EXTREMITIES: No cyanosis or clubbing BACK: No deformity, no pressure ulcer. GENITOURINARY: No dysuria or hematuria Vital Sign (Last 12 Hours) 01/13/25 01/13/25 01/13/25 01/13/25 07:00 07:24 08:00 11:00 Temp 97.7 97.5 Pulse 111 90 99 Resp 18 20 20 B/P (MAP) 119/82 99/51 Pulse Ox 100 99 97 O2 Delivery Nasal Cannula N/Cannula Low lpm Room Air* Room Air O2 Flow Rate 2.0 2.0 0 FiO2 28 21 Intake & Output (last 24hrs) 01/12/25 01/12/25 01/13/25 15:00 23:00 07:00 Intake Total 1500 ml Output Total 400 ml 400 ml Balance 1100 ml -400 ml LABS: Laboratory: Test 01/13/25 04:59 01/12/25 20:33 01/12/25 03:33 Range/Units White Blood Count 10.2 4.8-10.8 K/uL Red Blood Count 3.52 L 4.00-5.50 MIL/uL Hemoglobin 9.7 L 12.0-16.0 g/dL Hematocrit 30.5 L 36-48 % Mean Corpuscular Volume 86.6 79-99 fL Mean Corpuscular Hemoglobin 27.6 27.0-33.0 pg Mean Corpuscular Hemoglobin Concent 31.8 L 32.0-36.0 g/dL Red Cell Distribution Width 14.0 11.0-15.5 % Platelet Count 351 130-400 K/uL Mean Platelet Volume 9.0 7.5-10.5 fL Nucleated Red Blood Cells 0.0 0.0-0.19 % Sodium Level 143 136-145 mmol/L Potassium Level 4.0 3.5-5.1 mmol/L Chloride Level 106 101-111 mmol/L Carbon Dioxide Level 29 21-32 mmol/L Blood Urea Nitrogen 30 H 7-18 mg/dL Creatinine 0.8 0.5-1.0 mg/dL Glomerular Filtration Rate Calc 76 >90 mL/min Random Glucose 107 H 70-105 mg/dL Total Calcium 8.3 L 8.5-10.1 mg/dL Magnesium Level 2.40 1.80-2.40 mg/dL Total Bilirubin 0.2 0.2-1.0 mg/dL Aspartate Amino Transf (AST/SGOT) 12 10-37 U/L Alanine Aminotransferase (ALT/SGPT) 14 12-78 U/L Alkaline Phosphatase 53 50-136 U/L Total Protein 6.2 6.0-8.3 g/dL Albumin 2.6 L 3.5-5.0 g/dL Whole Blood Glucose 126 H 70-110 MG/DL Segmented Neutrophils % 97 H 40-70 % Lymphocytes % (Manual) 2 L 22-44 % Monocytes % (Manual) 1 L 2-9 % Differential Comment MANUAL DIFFERENTIAL Differential Pathologist's Review SEE SEPARATE REPORT White Cell Morphology Comment See comments Platelet Morphology Comment ADEQUATE Red Blood Cell Morphology See comments Iron Level 20 L 50-170 mcg/dL Total Iron Binding Capacity 303 250-450 mcg/dL Percent Iron Saturation 6.6 L 22-44 % Vitamin B12 Level 512 193-986 pg/mL Folic Acid (LAB) 14.60 2-20 ng/mL DIAGNOSTICS / RADIOLOGY: PATIENT: CHULA SHIPMAN ACCT: [id number] LOC: [facility] U: [id number] AGE/SX: 74/F ROOM: 201 RE01/10/[address]: VIRIDIANA NULL MD : 1950 BED: 1 DIS: STATUS: ADM IN TLOC: SPEC: [id number] ION: 01/10/25 STATUS: COMP REQ: [id number] RECD: 01/10/[address] [facility] DR: VIRIDIANA NULL MD SOURCE: SPUTUM ENTR: 01/10/[address]: LETY ARANGO MD SPDESC: DIANA ANTONIO MD,TRAN STARKEY MD, MD ORDERED: RESP CULTURE Procedure Result Essence Date-Time GRAM STAIN Final 01/11/25-1441 [facility] GRAM STAIN RESULT: GOOD SPECIMEN [ <10 SEC's/LPF and >25 PMN's/LPF ] RARE GRAM POSITIVE COCCI RARE GRAM NEGATIVE RODS RESPIRATORY CULTURE Final 01/13/25-0604 [facility] COLONY DESCRIPTION: REPORT 1: 2+ ORAL DERICK ; STUDIES TO CONTINUE REPORT 2: 1+ YEAST, [facility] NO FURTHER WORK-UP DONE [facility] ASSESSMENT: Gram-positive bacteremia possible contaminant. Pneumonia. PLAN: Continue Levaquin. This case was reviewed and discussed with my supervising physician Dr. Cintron and the above assessment and plan was formulated and agreed upon. ATTESTATION BY PHYSICIAN I have seen and examined the patient. I reviewed the documentation, medical decision making, and treatment plan as noted by the mid-level provider above. I agree with the findings and plan of care. DIONI CINTRON MD, [facility] Jan 13, 2025 16:54
--- NOTE | 2025-01-14 09:53 | HMCIMG ---
EXAM: CHEST RADIOGRAPH, ONE VIEW Technique: A single frontal chest radiograph was obtained. Evaluation is limited by single-view technique, which reduces sensitivity for small pleural effusions, small pneumothoraces, and subtle parenchymal or mediastinal abnormalities. Clinical Information: History noted as ???pp??? on the requisition; otherwise not specified. Comparison: Chest radiograph dated January 12, 2025 at 11:17 Eastern Daylight Time. Findings: Lungs show no focal consolidation or acute air-space abnormality. No discrete pulmonary mass is identified on this single frontal view. Pulmonary vascularity is within expected limits. No pleural effusion is identified. No pneumothorax is identified on this single projection. Cardiomediastinal contours show mild cardiomegaly. Mediastinal contours are otherwise within expected limits. No acute osseous abnormality is identified. Overall appearance is stable compared with January 12, 2025.IMPRESSION: 1. No acute cardiopulmonary findings. /[place]
== END 2025-01-13 13:00 | disposition home or self-care (01) | DRG 871 ==
LOC: EDH 09:18 → EDHIP 11:51 → 2AH 16:40
PROVIDERS: ADMIT Internal Medicine; ATTEND Internal Medicine
DX: A41.89 Other specified sepsis (principal); I50.33 Acute on chronic diastolic (congestive) heart failure; J18.9 Pneumonia, unspecified organism; J96.01 Acute respiratory failure with hypoxia; I48.0 Paroxysmal atrial fibrillation; I11.0 Hypertensive heart disease with heart failure; I25.10 Atherosclerotic heart disease of native coronary artery without angina pectoris; Z20.822 Contact with and (suspected) exposure to COVID-19; E66.9 Obesity, unspecified; J20.9 Acute bronchitis, unspecified; K57.30 Diverticulosis of large intestine without perforation or abscess without bleeding; D63.8 Anemia in other chronic diseases classified elsewhere; E78.00 Pure hypercholesterolemia, unspecified; I73.9 Peripheral vascular disease, unspecified; E66.01 Morbid (severe) obesity due to excess calories; Z88.0 Allergy status to penicillin; Z79.899 Other long term (current) drug therapy; Z68.38 Body mass index [BMI] 38.0-38.9, adult
CPT/HCPCS: 36415; 71045; 71250; 80048; 80053; 80076; 82550; 82607; 82746; 82948; 83036; 83540; 83550; 83605; 83735; 83880; 84145; 84443; 84484; 85025; 85027; 85610; 85730; 86140; 86738; 87040; 87071; 87086; 87186; 87205; 87426; 87804; 93005; 93306; 94640; 94664; 96365; 96375; 96376; 99291; G0378; J0696; J1756; J1938; J1956; J2470; J2919; J3490